=== PATIENT | female | born 1945 | race Caucasian/White ===

== ENCOUNTER 2019-01-04 04:55 | Inpatient (IN) ==
--- NOTE | 2018-12-16 09:16 | PAT Medication Instructions ---
Medication Instructions Date of Service December 16, 2018 Home Medications acetaminophen 500 mg PO QID PRN calcium carbonate-vitamin D3 1 tab PO QAM celecoxib [Celebrex] 200 mg PO BID latanoprost 1 drp OPHTHALMIC (EYE) PM montelukast 10 mg PO DAILY PRN multivitamin 1 tab PO QAM rosuvastatin [Crestor] 10 mg PO QAM ASK your surgeon for instructions celecoxib [Celebrex] 200 mg PO BID DO NOT take the morning of surgery calcium carbonate-vitamin D3 1 tab PO QAM montelukast 10 mg PO DAILY PRN multivitamin 1 tab PO QAM Take morning of surgery With a small sip of water, OTHERWISE NOTHING TO EAT OR DRINK AFTER MIDNIGHT: acetaminophen 500 mg PO QID PRN (if needed, may be taken up to four hours before surgery) rosuvastatin [Crestor] 10 mg PO QAM Take evening before surgery acetaminophen 500 mg PO QID PRN (if needed) latanoprost 1 drp OPHTHALMIC (EYE) PM Other Notes If you have any questions please call us at [phone] or [phone] or [phone] or [phone]
--- NOTE | 2018-12-16 13:37 | Anesthesiology Consultation ---
Date of Service December 16, 2018 Assessment & Plan (1) Encounter for pre-operative examination: Plan: PCP clearance 12/29/2018: "After reviewing patient's labs, chest x-ray, and EKG, she is cleared for surgery." Chart Review Chart Review: Acceptable Risk for Surgery and Patient seen in Pre Admission Testing Consults Requested none Teaching & Discussion Instructed NPO after midnight before surgery, except medications with 15 cc of water. Medication instructions provided according to the PAT guidelines. ASA ASA2 Proposed Anesthesia Anesthesia Type: MAC Spinal Risk / Benefits Reviewed With: PT / POA / Parent / Guardian, Accepts Plan and Informed Consent Obtained History Surgery Operation Date: 01/04/19 07:00 Proposed Procedures p Left Anterior Total Hip Arthroplasty - Derrek Wong, Height/Weight Height: 5 ft 4 in Weight: 71.7 kg Allergies Allergy/AdvReac Type Severity Reaction Status Date / Time No Known Allergies Allergy Verified 01/04/19 05:46 Medications Home Medications Medication Instructions Recorded Confirmed Last Taken acetaminophen 500 mg PO QID PRN 12/10/18 01/04/19 01/03/19 19:00 calcium carbonate-vitamin D3 1 tab PO QAM 12/10/18 01/04/19 12/21/18 09:00 [Calcium 600 + D(3)] celecoxib [Celebrex] 200 mg PO BID 12/10/18 01/04/19 12/28/18 17:00 latanoprost 1 drp OPHTHALMIC (EYE) PM 12/10/18 01/04/19 01/03/19 22:00 montelukast 10 mg PO DAILY PRN 12/10/18 12/10/18 Unknown multivitamin 1 tab PO QAM 12/10/18 01/04/19 01/03/19 09:30 rosuvastatin [Crestor] 10 mg PO QAM 12/10/18 01/04/19 01/03/19 09:30 Active Medications Generic Name Dose Route Start Last Admin Trade Name Freq PRN Reason Stop Dose Admin Acetaminophen 1,000 mg 01/04/19 06:00 01/04/19 05:51 Tylenol PO 01/04/19 18:00 1,000 mg PREOP LUCIO Administration Celecoxib 200 mg 01/04/19 06:00 01/04/19 05:50 Celebrex PO 01/04/19 18:00 200 mg PREOP LUCIO Administration Dexamethasone 8 mg 01/04/19 06:00 01/04/19 05:50 Decadron PO 01/04/19 18:00 8 mg PREOP LUCIO Administration Famotidine 20 mg 01/04/19 06:00 01/04/19 05:51 Pepcid PO 01/04/19 18:00 20 mg PREOP LUCIO Administration Metoclopramide HCl 10 mg 01/04/19 06:00 01/04/19 05:51 Reglan PO 01/04/19 18:00 10 mg PREOP LUCIO Administration Past Medical History Medical History Glaucoma (increased eye pressure) High cholesterol Seasonal allergies Past Family History Family History Father Family hx of colon cancer Past Surgical History Surgical History History of bunionectomy of right great toe History of right hip replacement Past Anesthesia History No Hx of Anesthesia Complications and No Family Hx of Anesthesia Complications History of PONV No Motion Sickness Screening History of Motion Sickness: No Social History Smoking Status: Never smoker Do You Dip or Chew Tobacco: No Hx Alcohol Use: Yes Alcohol type: beer alcohol intake frequency: a few times a month Hx Substance Use: No Exercise / Class Metabolic Activity II 4-5 Yardwork/Stairs/Walk up hill (no CP or SOB with stairs) Review of Systems Pt denies any recent chest pain, shortness of breath, palpitations, cough, fever or URI. Physical Exam Vital Signs Last Vital Signs Temp 36.8 C 01/04/19 05:58 Pulse 81 01/04/19 05:58 Resp 20 01/04/19 05:58 BP 146/78 H 01/04/19 05:58 BP: 127/76 P: 74bpm SPO2: 98% RA T: 97.4 F R: 16 ENMT Mouth: no dental restorations, no chipped teeth and no loose teeth Thyromental Distance: > or= 3.5 Finger Breadths (3.5) Mallampati Class: III Neck normal visual inspection; neck extension not limited Respiratory normal respiratory effort Auscultation: lungs clear to auscultation bilaterally Cardiovascular Rate/Rhythm: regular rate and regular rhythm Heart Sounds: no murmur Vessels: no carotid bruit Extremities: no edema Testing Electrocardiogram Date: 12/16/18 Findings: + NSR @ (71) Chest X-Ray Date: 12/16/18 Findings: + NAD Laboratory Results 12/16/18 13:55 12/16/18 13:55 Blood Type A Positive 12/16/18 13:55 Antibody Screen NEGATIVE 12/16/18 13:55 PT 10.4 Seconds (9.0-12.0) 12/16/18 13:55 INR 1.0 (0.9-1.1) 12/16/18 13:55 APTT 25.4 Seconds (21.0-31.0) 12/16/18 13:55 Hemoglobin A1c 5.6 % (4.5-5.6) 12/16/18 13:55 Urine Color Yellow 12/16/18 Unknown Urine Appearance Clear (Clear) 12/16/18 Unknown Urine pH 5.0 (4.5-7.5) 12/16/18 Unknown Ur Specific [place] 1.011 (1.000-1.030) 12/16/18 Unknown Urine Protein Negative (Negative) 12/16/18 Unknown Urine Glucose (UA) Negative (Negative) 12/16/18 Unknown Urine Ketones Negative (Negative) 12/16/18 Unknown Urine Nitrite Negative (Negative) 12/16/18 Unknown Ur Leukocyte Esterase Trace (Negative) H 12/16/18 Unknown Urine WBC (Auto) 1-5 /hpf (0-5) 12/16/18 Unknown Urine RBC (Auto) 0-4 /hpf (0-4) 12/16/18 Unknown U Hyaline Cast (Auto) 0 /lpf (0-5) 12/16/18 Unknown U Epithel Cells (Auto) 0-5 /lpf (0-5) 12/16/18 Unknown Urine Bacteria (Auto) Negative (Negative) 12/16/18 Unknown 12/16/18 Unknown Urine Culture - Final Urine,Clean Catch Alpha strep. not enterococcus
--- NOTE | 2018-12-16 14:20 | XRay Report ---
XR chest Pre-admission PA/Lat CLINICAL HISTORY: Preoperative chest COMPARISON STUDY: No previous studies for comparison. FINDINGS: The cardiac and mediastinal contours are normal. There is no evidence of focal pulmonary co nsolidation. There is no evidence of failure. No pleural effusions are visualized.[ IMPRESSION: No active disease in the chest. Electronically signed by: Dominguez Alonso M.D. 12/16/2018 2:19 PM
[2018-12-16 14:34] LABS: Basophils # (auto) 0.04 K/uL (0-0.2); Basophils % (auto) 0.8 %; Eosinophils # (auto) 0.06 K/uL (0-0.5); Eosinophils % (auto) 1.2 %; Hemoglobin 11.7 g/dL (12.0-16.0); Immature Granulocytes # (auto) 0.01 K/uL (0.00-0.02); Immature Granulocytes % (auto) 0.2 %; Lymphocytes # (auto) 1.53 K/uL (1.2-3.4); Lymphocytes % (auto) 29.7 %; Mean Corpuscular Hgb Conc 33.4 g/dL (32-36); Mean Corpuscular Volume 94.3 fL (80-100); Mean Platelet Volume 9.6 fL (7.4-10.4); Monocytes # (auto) 0.54 K/uL (0.11-0.59); Monocytes % (auto) 10.5 %; Neutrophils # (auto) 2.98 K/uL (1.4-6.5); Neutrophils % (auto) 57.6 %; Platelet Count 288 K/uL (130-400); RDW Coefficient of Variation 13.8 % (11.5-14.5); RDW Standard Deviation 47.8 fL (36.4-46.3); Red Blood Count 3.71 M/uL (4.2-5.4); White Blood Count 5.16 K/uL (4.8-10.8)
[2018-12-16 14:41] LABS: BUN Creatinine Ratio 27.2 (10-20); Calcium 10.1 mg/dl (8.5-10.1); Creatinine Clr Calc Pharmacy 72.6 ml/min; Est GFR (African American) 100.9; Potassium 4.6 mmol/L (3.5-5.1)
[2018-12-16 14:42] LABS: Partial Thromboplastin Time 25.4 Seconds (21.0-31.0); Prothrombin Time 10.4 Seconds (9.0-12.0)
[2018-12-16 14:47] LABS: Appearance Urine Clear (Clear); Bacteria Urine Automated Negative (Negative); Bilirubin Urine Negative (Negative); Cast Urine Automated 0 /lpf (0-5); Color Urine Yellow; Epithelial Cell Urine Auto 0-5 /lpf (0-5); Glucose Urine UA Negative (Negative); Ketones Urine Negative (Negative); Leukocyte Esterase Urine Trace (Negative); Nitrite Urine Negative (Negative); Protein Urine Negative (Negative); Specific Gravity Urine 1.011 (1.000-1.030); Urobilinogen Urine Negative (Negative)
[2018-12-17 05:45] LABS: Estimated Average Glucose 114 mg/dl
--- NOTE | 2019-01-03 12:25 | History & Physical Report ---
Date of Service January 03, 2019 Assessment & Plan (1) Degenerative joint disease (DJD) of hip: I have indicated the patient for left anterior total hip replacement. The risks, benefits and complications of surgery were explained to the patient which include but not limited to infection, acute blood loss, DVT/PE, injury to nerves, vessels, bone, soft tissue, arthrofibrosis, chronic pain, failure of the prosthesis, hip dislocation, leg length discrepancy, need for additional surgery, cardiac and pulmonary events and . The patient wished to proceed with surgery and informed consent was obtained at this time. We will plan for ASA BID post-operatively for DVT prophylaxis. Upon discharge the patient will be discharged home with home health services. Appropriate clearances by PCP were obtained. History of Present Illness Chief Complaint: Left hip pain/DJD Primary Care Provider: Zuleyma Kern The patient is a 73 year old female who presents with complaints of severe left hip pain and DJD. The patient has failed outpatient conservative treatments to this point which included NSAIDs, IA corticosteroid injection, HEP/PT. The patient's pain and limited function have progressed to the point where they severely hinder their activities of daily living and they no longer tolerate exercise programs. They are requesting to proceed with total hip replacement surgery. Allergies Allergy/AdvReac Type Severity Reaction Status Date / Time No Known Allergies Allergy Verified 01/04/19 05:46 Home Medications Home Medications Medication Instructions Recorded Confirmed Type acetaminophen 500 mg PO QID PRN 12/10/18 01/04/19 History calcium carbonate-vitamin D3 1 tab PO QAM 12/10/18 01/04/19 History [Calcium 600 + D(3)] celecoxib [Celebrex] 200 mg PO BID 12/10/18 01/04/19 History latanoprost 1 drp OPHTHALMIC (EYE) PM 12/10/18 01/04/19 History montelukast 10 mg PO DAILY PRN 12/10/18 12/10/18 History multivitamin 1 tab PO QAM 12/10/18 01/04/19 History rosuvastatin [Crestor] 10 mg PO QAM 12/10/18 01/04/19 History Past Med/Surg History Medical History Glaucoma (increased eye pressure) High cholesterol Seasonal allergies Surgical History History of bunionectomy of right great toe History of right hip replacement Family History Father Family hx of colon cancer Social History Current Living Situation: Family Other Information That Helps Us Care for You: No Feels Safe at Home: Yes Safety Concerns: Feels Safe At This Time Smoking Status: Never smoker Do You Dip or Chew Tobacco: No Hx Alcohol Use: Yes Alcohol type: beer Alcohol Intake Frequency: a few times a month Hx Substance Use: No Beliefs That Will Affect Care: None Preferred Language: Malay Communication Ability: Effective Review of Systems All systems reviewed & are unremarkable except as noted in HPI & below Physical Exam 2 Physical Exam: LLE NVSI +EHL/FHL/TA/GS SILT grossly, +2 DP pulse, compartments soft NT, limited painful ROM of the hip. Constitutional: WD/WN, vitals as above Eyes: PERRL, conjunctivae normal, anicteric sclerae Neck: trachea midline, no thyromegaly Respiratory: normal respiratory effort, lungs clear to auscultation Cardiovascular: RRR, no murmur, no edema Gastrointestinal (Abdomen): normal bowel sounds, soft, nontender, no hepatosplenomegaly Musculoskeletal: no cyanosis or clubbing, extremities motor strength 5/5 Skin: no rashes, warm and dry Neurologic: patellar DTR's 2+ bilat, sensation intact Psychiatric: A+Ox3, euthymic affect Lymphatic: no cervical or axillary lymphadenopathy Results & Data Diagnostic Findings Multiple views of the hip demonstrates severe DJD with complete loss of the joint space. +osteophytes, +sclerosis, +subchondral cysts.
[2019-01-04] MEDS ORDERED: CeleBREX 200 MG CAP PO SCH (06:00)
[2019-01-04] MEDS ORDERED: METOCLOPRAMIDE HCL 10 MG TABLET PO SCH (06:00)
[2019-01-04] MEDS ORDERED: dexAMETHasone 4 MG TAB PO SCH (06:00)
[2019-01-04] MEDS ORDERED: FAMOTIDINE 20 MG TAB PO SCH (06:00)
[2019-01-04] MEDS ORDERED: LR 500ML BOLUS IV SCH (06:00)
[2019-01-04] MEDS ORDERED: LR 500ML BOLUS, THEN 15ML/HR IV SCH (06:00)
[2019-01-04] MEDS ORDERED: TRANEXAMIC ACID 1,000 MG **IV Pre-op IV SCH (06:00)
[2019-01-04] MEDS ORDERED: CEFAZOLIN 1000MG 1,000 MG/7.5 ML SYR IV SCH (06:00)
[2019-01-04] MEDS ORDERED: ACETAMINOPHEN 500 MG TAB PO SCH (06:00)
[2019-01-04] MEDS ORDERED: ROPIVACAINE 0.5% HCL/PF 150 MG, BUPIVACAINE 0.5% MPF 30 ML, EPINEPHrine 30MG/30ML (OR U... INFIL SCH (06:00)
[2019-01-04] MEDS ORDERED: LR 60ML/HR IV SCH (06:00)
[2019-01-04] MEDS ORDERED: TRANEXAMIC ACID 1,000 MG **IV Intra-op IV SCH (06:30)
[2019-01-04] MEDS ORDERED: BUPIVACAINE 0.5 % 5 MG/1 ML PF 10ML VIAL ONE (06:35)
[2019-01-04] MEDS ORDERED: ORTHO JOINT ANESTHETIC ONE (06:39)
[2019-01-04] MEDS ORDERED: fentaNYL citrate 100 MCG/2 ML VIAL ONE (06:39)
[2019-01-04] MEDS ORDERED: MIDAZOLAM HCL 1 MG/ML 2ML VIAL ONE ×3 (06:39→08:55)
[2019-01-04] MEDS ORDERED: BACITRACIN INJ 50,000 UNIT VIAL ONE (06:39)
[2019-01-04] MEDS ORDERED: POVIDONE-IODINE OP SOLN 30 ML BTL ONE (06:39)
--- NOTE | 2019-01-04 07:01 | History & Physical Bridge Note ---
Date of Service January 04, 2019 History & Physical Bridge Note I have examined the patient, reviewed the History & Physical and in the interval since the performance of the History & Physical I have noted the following changes of clinical significance: no changes noted
[2019-01-04] MEDS ORDERED: ONDANSETRON INJ 2 MG/ML 2 ML VIAL IV PRN ×2 (07:02→10:27)
[2019-01-04] MEDS ORDERED: ATROPINE SULFATE 0.1 MG/ML 10ML SYR IV PRN (07:02)
[2019-01-04] MEDS ORDERED: fentaNYL citrate 100 MCG/2 ML VIAL IV PRN (07:02)
[2019-01-04] MEDS ORDERED: ePHEDrine sulfate 50 MG/ML AMP IV PRN (07:02)
[2019-01-04] MEDS ORDERED: PROPOFOL IV EMULSION 10 MG/ML 20 ML VIAL IV ONE (07:56)
[2019-01-04] MEDS ORDERED: PHENYLEPHRINE 100MCG/ML 5ML SYR ONE ×2 (07:56→08:55)
--- NOTE | 2019-01-04 09:12 | Post Operative Brief Note ---
Immediate Post Op Note v1 Date of Surgery January 04, 2019 Pre & Post Diagnosis Operation Date: 01/04/19 07:00 Pre-Op Diagnosis: LEFT HIP OSTEOARTHRITIS Post-Op Diagnosis: LEFT HIP OSTEOARTHRITIS Procedure Operation Date: 01/04/19 07:00 Actual Procedures p Left Anterior Total Hip Arthroplasty(Left) - Derrek Wong DO Surgeon Derrek Wong DO Cephalometric Analyst Ramy Ayala Estimated Blood Loss 75 Findings Consistent with Post-Op Diagnosis Fluids 700 Specimens femoral head Anesthesia Type Spinal MAC Complications none Disposition Disposition: Recovery Room Overlapping Procedure I was present for: the critical portions of procedure. Back up surgeon: was not required during procedure.
--- NOTE | 2019-01-04 09:36 | Operative Report ---
Post Operative Report Pre & Post Diagnosis Operation Date: 01/04/19 07:00 Pre-Op Diagnosis: LEFT HIP OSTEOARTHRITIS Post-Op Diagnosis: LEFT HIP OSTEOARTHRITIS Procedure Operation Date: 01/04/19 07:00 Actual Procedures p Left Anterior Total Hip Arthroplasty(Left) - Derrek Wong DO Surgeon Derrek Wong DO Icing Coater Ramy Ayala Estimated Blood Loss 75 Findings Consistent with Post-Op Diagnosis Fluids 700 Specimens Femoral head Anesthesia Type Spinal MAC Complications none Indications The patient is a 73-year-old female who presents with severe progressive left hip DJD who has failed outpatient conservative treatments. I indicated the patient for a total hip replacement and the risks and benefits were explained in detail which included but not limited to infection, bleeding, blood clot, damage to surrounding bone, nerves, vessels, soft tissue, hip dislocation, failure of the prosthesis, leg length discrepancy, need for additional surgery and . The patient agreed to proceed with replacement of the hip and informed consent was obtained. Appropriate clearances were obtained. Description of Procedure COMPONENTS USED: [employer] hip system: Acetabulum size 48, femur size 6 high offset, femoral head 32+0, liner 32 x 48, acetabular screw 25. DESCRIPTION OF PROCEDURE: Following satisfactory spinal anesthesia, the patient was placed supine on the OR table. The right leg was placed in the well leg munoz and the left leg in the traction device. The left leg was prepared with ChloraPrep and draped sterilely. Following a surgical time-out, an anterior approach in the interval between the sartorius and tensor muscles was completed. Circumflex femoral vessels were identified, tied and ligated. The anterior capsular fat pad was removed and the capsulotomy was performed revealing the arthritic femoral neck and head. A femoral neck cut was made with reciprocating saw and the bone fragments removed. The acetabular self- retraining retractor was placed. Acetabular reaming was completed under fluoroscopic guidance, a 48 shell was impacted into an anatomic position and secured with a dome screw. Local anesthetic was placed and following irrigation , the polyethylene liner was placed. The femur was placed into position of external rotation, extension and adduction. Femoral canal was prepared up to the size 6 high offset. Trial reduction with a +0 neck length head showed good soft tissue tension, leg lengths restored, and good fit and fill of the proximal canal using fluoroscopic landmarks. The hip was dislocated. The trial component was removed. The final implant was placed. The hip was irrigated with sterile saline soluation and reduced. A Betadine soak was performed. After 3 minutes, the hip was once more irrigated with copious sterile saline solution with bacitracin. Sanjuanita- incisional soft tissue was injected utilizing [place] [employer] which includes a combination of Ropivicaine 0.5% 150mg, Bupivicaine 0.5%/Epinephrine 1 :200,000 30ml, Toradol 30mg, Dexamethasone 4mg, Ketamine 10mg, Clonidine 100mcg and NSS 30ml solution. The capsule was then closed with 1-0 Vicryl interrupted figure of eight sutures. The fascia was closed with a running suture of #1 Vicryl, the subcutaneous tissues with 2-0 Vicryl and the skin with a running subcuticular stitch of 3-0 V-Loc. Dermabond prineo and a dry dressing, Prevena incisional vac were applied. The patient tolerated the procedure well and was transported to PACU in stable condition. Due to the complex nature of the procedure, the entire surgery was performed with the operational assistance of Ramy Ayala PA-C. The catalog library assistant, under direct supervision, was involved in the actual performance of all aspects of the surgical procedure including patient positioning, hemostasis, tissue retraction, instrument management and wound closure. I attest to the content of the Intraoperative Record and any orders documented therein. Any exceptions are noted below.
--- NOTE | 2019-01-04 10:01 | Anesthesiology Progress Note ---
Date of Service January 04, 2019 Anesthesia Post Procedure Vital Signs Vital Signs: Temp Pulse Pulse Resp BP BP Pulse Ox 01/04/19 09:50 69 12 114/69 100 01/04/19 09:40 36.4 C L 81 15 109/61 100 01/04/19 05:58 36.8 C 81 20 146/78 H Pain Intensity Left Hip: Pain Intensity: 0 Notes Mental Status: alert / awake / arousable Patient Amnestic to Procedure: Yes Nausea / Vomiting: adequately controlled Pain: adequately controlled Airway Patency, RR, SpO2: stable & adequate BP & HR: stable & adequate Hydration State: stable & adequate Neuraxial Anesthesia: was administered and sensory block is resolving Anesthetic Complications: no major complications apparent
--- NOTE | 2019-01-04 10:02 | Fluoroscopy Report ---
FL hip LT 1V CLINICAL HISTORY: LEFT ANTERIOR ANDRES COMPARISON STUDY: None. FLUOROSCOPY TIME: 57 seconds. FINDINGS: 2 fluoroscopic spot images demonstrate a left total hip arthroplasty. The hardware appears intact. No fracture or dislocation. IMPRESSION: Fluoroscopy provided for left total hip arthroplasty. Electronically signed by: Mamadou Ramsey M.D. 01/04/2019 10:00 AM
--- NOTE | 2019-01-04 10:09 | XRay Report ---
AP PELVIS, CROSSTABLE LATERAL LEFT HIP History: Left total hip arthroplasty. Degenerative arthritis. Postop. FINDINGS: The patient is status post a left total hip arthroplasty. The hardware is intact. No fractu re or dislocation. Skin loren and surgical drains are in place. There is evidence for polyethylene wear within the right acetabular cup of the right total hip arthroplasty. IMPRESSION: Left total hip arthroplasty. No evidence for hardware complication within the left hip. There is evid ence for polyethylene wear within the right acetabular cup of the right total hip arthroplasty. Electronically signed by: Mamadou Ramsey M.D. 01/04/2019 10:08 AM
[2019-01-04] MEDS ORDERED: BISACODYL 10 MG SUPP PR PRN (10:27)
[2019-01-04] MEDS ORDERED: MONTELUKAST SODIUM 10 MG TABLET PO PRN (10:27)
[2019-01-04] MEDS ORDERED: METOCLOPRAMIDE HCL INJ 5 MG/ML 2 ML VIAL IV PRN (10:27)
[2019-01-04] MEDS ORDERED: MAGNESIUM HYDROXIDE SUSP 30 ML UDC PO PRN (10:27)
[2019-01-04] MEDS ORDERED: NALOXONE HCL 0.4 MG/1 ML VIAL/CARP IV PRN (10:27)
[2019-01-04] MEDS ORDERED: HYDROmorphone INJ 0.5 MG/0.5 ML SYR IV PRN (10:27)
[2019-01-04] MEDS: KETOROLAC TROMETHAMINE 15 MG/ML VIAL IV SCH ×3 (12:03→23:31)
[2019-01-04] MEDS: SODIUM CHLORIDE 0.9% 1000ML 1,000 ML IV SCH ×2 (13:33→23:31)
[2019-01-04] MEDS ORDERED: ACETAMINOPHEN 500 MG TAB PO PRN (14:00)
--- NOTE | 2019-01-04 15:27 | Orthopedic Progress Note ---
Date of Service January 04, 2019 Assessment & Plan (1) Degenerative joint disease (DJD) of hip: Status post left anterior total hip arthroplasty -Ancef x24 -DVT prophylaxis ASA 325 mg twice daily, SCDs and teds -Weight-bear as tolerated left lower extremity -PT/OT -A.m. labs -Postoperative x-ray demonstrates a well aligned well fixed orthopedic prosthesis without evidence of fracture dislocation. - Subjective Post Operative Progress Note Patient seen sitting up in bed, comfortable, denies complaints, pain well controlled, no acute issues. Physical Exam 2 Vital Signs (Past 24 Hours): Last Vital Signs Temp 36.8 C 01/04/19 15:10 Pulse 76 01/04/19 15:10 Resp 18 01/04/19 15:10 BP 124/70 01/04/19 15:10 Pulse Ox 99 01/04/19 15:10 Physical Exam: LLE NVSI +EHL/FHL/TA/GS SILT grossly, +2 DP pulse, compartments soft NT, dressing cdi. Constitutional: WD/WN, vitals as above
[2019-01-04] MEDS: CEFAZOLIN 2000MG 2,000 MG/15 ML SYR IV SCH ×2 (15:49→22:36)
[2019-01-04] MEDS ORDERED: SENNA 8.6 MG TAB PO SCH (21:00)
[2019-01-04] MEDS ORDERED: LATANOPROST 0.005% OP SOLN 2.5 ML BTL OP SCH (21:00)
[2019-01-04] MEDS: DOCUSATE SODIUM 100 MG CAP PO SCH (21:37)
[2019-01-05] MEDS: OXYCODONE HCL IR 5 MG TAB (IMMEDIATE RELEASE) PO PRN ×3 (02:37→11:38)
[2019-01-05] MEDS: KETOROLAC TROMETHAMINE 15 MG/ML VIAL IV SCH (05:11)
[2019-01-05 06:15] LABS: Basophils # (auto) 0.01 K/uL (0-0.2); Basophils % (auto) 0.1 %; Hematocrit (blood only) 27.5 % (37-47); Hemoglobin 9.3 g/dL (12.0-16.0); Immature Granulocytes # (auto) 0.03 K/uL (0.00-0.02); Immature Granulocytes % (auto) 0.3 %; Lymphocytes # (auto) 1.69 K/uL (1.2-3.4); Lymphocytes % (auto) 14.2 %; Mean Corpuscular Hgb Conc 33.8 g/dL (32-36); Mean Corpuscular Volume 92.9 fL (80-100); Mean Platelet Volume 9.4 fL (7.4-10.4); Monocytes # (auto) 1.27 K/uL (0.11-0.59); Monocytes % (auto) 10.7 %; Neutrophils % (auto) 74.7 %; Platelet Count 247 K/uL (130-400); RDW Coefficient of Variation 13.3 % (11.5-14.5); RDW Standard Deviation 44.7 fL (36.4-46.3); Red Blood Count 2.96 M/uL (4.2-5.4)
[2019-01-05 06:44] LABS: BUN Creatinine Ratio 18.4 (10-20); Creatinine Clr Calc Pharmacy 67.5 ml/min; Est GFR (African American) 97.3; Est GFR (Non-African American) 83.9; Potassium 4.3 mmol/L (3.5-5.1)
--- NOTE | 2019-01-05 08:22 | Anesthesiology Progress Note ---
Date of Service January 05, 2019 Anesthesia Post Procedure Vital Signs Vital Signs: Temp Pulse Pulse Resp BP Pulse Ox 01/05/19 07:05 36.9 C 81 16 127/67 99 01/05/19 02:30 36.8 C 81 16 118/72 99 01/04/19 23:22 36.9 C 59 L 16 120/68 96 01/04/19 18:43 36.9 C 73 18 133/69 100 01/04/19 15:10 36.8 C 76 18 124/70 99 01/04/19 13:20 36.6 C 76 15 131/74 99 01/04/19 12:18 64 18 127/73 99 01/04/19 11:18 36.6 C 72 16 132/78 100 01/04/19 10:50 36.5 C 71 16 116/79 100 01/04/19 10:20 36.3 C L 63 14 120/70 100 01/04/19 10:10 36.5 C 61 12 111/68 100 01/04/19 10:00 64 13 112/69 100 01/04/19 09:50 69 12 114/69 100 01/04/19 09:40 36.4 C L 81 15 109/61 100 Pain Intensity Left Hip: Pain Intensity: 3 Notes Mental Status: alert / awake / arousable and participated in evaluation Nausea / Vomiting: adequately controlled Pain: adequately controlled Airway Patency, RR, SpO2: stable & adequate BP & HR: stable & adequate Hydration State: stable & adequate Anesthetic Complications: no major complications apparent and Pt Satisfied with anesthetic care
[2019-01-05] MEDS: DOCUSATE SODIUM 100 MG CAP PO SCH (08:43)
[2019-01-05] MEDS ORDERED: ASPIRIN 325 MG ECTAB PO SCH (09:00)
[2019-01-05] MEDS ORDERED: MULTIVITAMIN TAB PO SCH (09:00)
[2019-01-05] MEDS ORDERED: ROSUVASTATIN CALCIUM 10 MG TAB PO SCH (09:00)
--- NOTE | 2019-01-05 14:28 | Orthopedic Progress Note ---
Date of Service January 05, 2019 Assessment & Plan (1) Degenerative joint disease (DJD) of hip: Status post left anterior total hip arthroplasty POD#1 -Ancef x24 -DVT prophylaxis ASA 325 mg twice daily, SCDs and teds -Weight-bear as tolerated left lower extremity -PT/OT -A.m. labs - hgb 9.3 -Postoperative x-ray demonstrates a well aligned well fixed orthopedic prosthesis without evidence of fracture dislocation. -DC planning - home with HH today Subjective Post Operative Progress Note, patient seen this a.m. sitting up in bed, comfortable, denies complaints, pain well controlled, no acute issues overnight. Physical Exam 2 Vital Signs (Past 24 Hours): Last Vital Signs Temp 36.9 C 01/05/19 09:24 Pulse 81 01/05/19 09:24 Resp 16 01/05/19 09:24 BP 127/67 01/05/19 09:24 Pulse Ox 95 01/05/19 11:47 Physical Exam: LLE NVSI +EHL/FHL/TA/GS SILT grossly, +2 DP pulse, compartments soft NT, dressing cdi.
[2019-01-05] MEDS ORDERED: CeleBREX 200 MG CAP PO SCH (21:00)
--- NOTE | 2019-01-05 21:05 | Discharge Summary ---
Date of Service January 05, 2019 Admission HPI Per Admitting Provider The patient is a 73 year old female who presents with complaints of severe left hip pain and DJD. The patient has failed outpatient conservative treatments to this point which included NSAIDs, IA corticosteroid injection, HEP/PT. The patient's pain and limited function have progressed to the point where they severely hinder their activities of daily living and they no longer tolerate exercise programs. They are requesting to proceed with total hip replacement surgery. Principal Diagnosis Left anterior total hip arthroplasty Discharge Exam LLE NVSI +EHL/FHL/TA/GS SILT grossly, +2 DP pulse, compartments soft NT, dressing cdi. Constitutional WD/WN, vitals as above Eyes PERRL, conjunctivae normal, anicteric sclerae Neck trachea midline, no thyromegaly Respiratory normal respiratory effort, lungs clear to auscultation Cardiovascular RRR, no murmur, no edema Gastrointestinal (Abdomen) normal bowel sounds, soft, nontender, no hepatosplenomegaly Musculoskeletal no cyanosis or clubbing, extremities motor strength 5/5 Skin no rashes, warm and dry Neurologic patellar DTR's 2+ bilat, sensation intact Psychiatric A+Ox3, euthymic affect Lymphatic no cervical or axillary lymphadenopathy Discharge Data Allergies Allergy/AdvReac Type Severity Reaction Status Date / Time No Known Allergies Allergy Verified 01/04/19 05:46 Consultations 01/05/19 08:00 Consult Case Management - Discharge Planning Routine Procedures Performed Operation Date: 01/04/19 07:00 Actual Procedures p Left Anterior Total Hip Arthroplasty(Left) - Derrek Wong DO Ordered Studies 01/04/19 07:00 FL fluoroscopy <1hr Routine FL hip LT 1V Routine Hospital Course (1) Degenerative joint disease (DJD) of hip: The patient is a 73 -year-old female who presents with long standing history of severe left DJD and failed outpatient conservative treatments including NSAIDs, bracing, injections and home walking/exercise program. The patient's symptoms have progressed to the point where it has been difficult to perform even normal activities of daily living. I indicated the patient for a left anterior total hip arthroplasty, the risks, benefits and complications of the procedure include but not limited to infection , bleeding, damage to bone, nerves, vessels, surrounding soft tissue, may develop blood clots, loss of function, leg length discrepancy, dislocation, failure of the components, loosening of the components, the need for additional surgery and . The patient wished to proceed with surgery at this time and informed consent was obtained. Hospital Course: On 2 the patient was taken to the operating room, adequate anesthesia administered and underwent a left anterior total hip arthroplasty. The patient tolerated the procedure well and was taken to the PACU in stable condition. Post-operatively the patient was started on a DVT ppx medication and given appropriate IV antibiotics. Consults were placed to physical therapy, occupational therapy and case management. On POD#1, the patient did well overnight and their pain was well controlled. Labs were drawn and the Hgb was 9.3. The patient progressed well with PT. Dressings were changed at this time and the incision was clean, dry and intact. The patients hospital stay was relatively uneventful and they were deemed stable by the orthopedic team and consultants to be discharged home on on 10/12. Discharge Instructions: Upon discharge the patient may weight bear as tolerates through their operative extremity. They were instructed to keep the incision clean and dry at all times. The patient may shower but should not submerge the incision, avoid bathing, pools and hot tubes. The patient was given a script for pain medication and should take as instructed. The patient was given a script for DVT ppx ASA 325mg BID and should take as directed. The patient was instructed to not drive or travel for long distances until cleared to do so. If the patient develops any symptoms of fevers, chills, nausea, vomiting, increased redness, swelling, pain or drainage from the surgical site, they should notify the office and/or proceed to the nearest emergency room. The patient should follow up in 10-14 days after surgery for their routine post-operative follow- up appointment and should call the office to confirm the date and time. Status post left anterior total hip arthroplasty POD#1 -Ancef x24 -DVT prophylaxis ASA 325 mg twice daily, SCDs and teds -Weight-bear as tolerated left lower extremity -PT/OT -A.m. labs - hgb 9.3 -Postoperative x-ray demonstrates a well aligned well fixed orthopedic prosthesis without evidence of fracture dislocation. -DC planning - home with today Total Time Total Time Spent Total Time Spent (In Minutes): >60 minutes Total Time Includes: Examination of the Patient, Discharge Planning, Medication Reconciliation and Communication With Other Providers Discharge Plan Discharge Items Patient Disposition: Home - Home Health Services Reason For Visit: LEFT HIP OSTEOARTHRITIS Discharge Diagnosis: Left anterior total hip replacement Condition: Good Discharge Goals: Decrease discomfort, Improve function, Increase independence and Therapeutic intervention Activity: Per 'Additional Instructions' section Lifting: Wait until after follow-up appointment Bathing Comment: No bathing, pools hot tubs Sexual Activity: Wait until after follow-up appointment Driving/Machine Use Comment: do not drive until cleared by your surgeon Weightbearing: Left weightbearing Non-emergency contact: Primary Care Provider and Surgeon Call non-emergency contact if: you have any medication questions, your symptoms worsen, your pain is not controlled, your pain is worsening, your pain is unusual for you, you have a fever, your temperature is above 101, your wound has increased redness, your wound has increased drainage and your wound pain has increased Follow-up/Referrals: Zuleyma Kern PA-C [Primary Care Provider] - Diet: Regular Addtl Provider Instructions: ACTIVITY RECOMMENDATIONS: SELF CARE INSTRUCTIONS AFTER TOTAL HIP REPLACEMENT : Direct Anterior Approach Until the incision and soft tissues around your hip have healed, there is a possibility that the hip prosthesis could dislocate. A. Hip flexion ( Up & Down out of chair or steps ) may be difficult. This is normal. B. Numbness in front of the thigh is also normal for a few weeks. C. Use hand rails when walking on stairs. D. Wear low heeled shoes with non-slip soles. E. Be sure that your floors are free of things that could trip you - throw rugs , electrical cords, small objects. Avoid wet and waxed floors, especially with crutches and canes. F. Try to walk several times a day with rest periods between. G. Continue with all the exercises taught to you in the hospital. Again, make walking a part of your daily routine. SPECIAL CARE INSTRUCTIONS: VERY IMPORTANT TO READ AND REVIEW A. You may still be at risk for phlebitis and blood clots. 1. Wear surgical stockings (LUCI hose) for 2 weeks after surgery to improve circulation and reduce swelling. 2. Take Aspirin 325mg twice daily for 4 weeks or as directed by your doctor. This is your blood thinner. 3. High risk patients may be prescribed a stronger blood thinner if necessary. 4. If you are on Coumadin normally, your family doctor/wood patternmaker should monitor your blood work. Expect a phone call the day of or the day after bloodwork is drawn to adjust your dosage. B. You must take antibiotics before having dental work, bladder, bowel and other surgery. Your doctor will provide you with a permanent card to carry describing precautions. C. Call [facility] if you have a fever, redness or swelling around the incision, cloudy drainage from incision, or sudden increase in pain in your hip, not relieved by your regular pain medication. D. Please call the office at if you have any concerns or questions about your operation or recovery. * YOU MAY SHOWER, NO TUB BATHS UNTIL CLEARED BY YOUR DOCTOR. - Keep an extra close eye on the top portion of your incision. Be sure to keep clean & dry. * WEAR LUCI HOSE 20 HOURS PER DAY FOR 2 WEEKS. * YOU MAY PROGRESS FROM A WALKER, TO A CANE, TO INDEPENDENT AT YOUR OWN PACE. * MOST PATIENTS WILL HAVE HOME NURSING FOR THERAPY. IF YOU DECIDE TO DO OUTPATIENT PHYSICAL THERAPY, PLEASE SCHEDULE THIS 3 TIMES PER WEEK. * DERMABOND Prineo- This is a mesh tape dressing that is covered with glue. It should remain in place until the incision is properly healed, usually 10-14 days. This dressing is designed to naturally slough off. You may trim the excess mesh tape as it peels off. Incision may be briefly wet in a shower. Dry immediately by blotting with a clean, dry towel. Do not bath or swim until instructed by your doctor. Do not scratch, rub, or pick at the dressing. Do not apply any topical ointments or lotions until dressing is completely removed and/or instructed by your doctor. There may be a small piece of suture material at one end of your incision. Do not pull or trim this. If it is bothersome or catching on clothing, you may cover it with a band-aid. *Prevena incisional vac is a special dressing covering your incision. This dressing provides a sterile dry environment while you are healing. The dressing is to be left in place for 7 days post-operatively. Your home nurse or surgeon will remove. If you develop any redness or blisters or have any questions notify your surgeon immediately. FOLLOW UP VISIT: If appointment is not already scheduled: Please call [facility] to make a follow-up appointment for 2 weeks after your surgery at . Prescriptions: New acetaminophen [Pain Reliever] 500 mg Tablet 1,000 mg PO Q8H PRN (Reason: pain) Qty: 90 RF: 0 aspirin 325 mg Tablet,Delayed Release (Dr/Ec) 325 mg PO BID 28 Days Qty: 56 RF: 0 celecoxib [Celebrex] 200 mg Capsule 200 mg PO BID PRN (Reason: pain) 14 Days Qty: 28 RF: 0 sennosides [Senokot] 8.6 mg Tablet 17.2 mg PO HS PRN (Reason: constipation) Qty: 14 RF: 0 oxycodone 5 mg Tablet 5 mg PO Q6H MDD 6 tabs PRN (Reason: pain) Qty: 30 RF: 0 Continue latanoprost 0.005 % Drops 1 drp OPHTHALMIC (EYE) PM RF: 0 montelukast 10 mg Tablet 10 mg PO DAILY PRN (Reason: allergies) RF: 0 rosuvastatin [Crestor] 10 mg Tablet 10 mg PO QAM RF: 0 multivitamin Tablet 1 tab PO QAM RF: 0 calcium carbonate-vitamin D3 [Calcium 600 + D(3)] 600 mg calcium- 200 unit Capsule 1 tab PO QAM RF: 0 Discontinued acetaminophen 500 mg Tablet 500 mg PO QID PRN (Reason: Pain) RF: 0 celecoxib [Celebrex] 200 mg Capsule 200 mg PO BID RF: 0 Stand-Alone Forms: [facility] Discharge Orders: Discharge Order (Routine); Ordered 01/05/19 Ordered By: Derrek Wong Admission Data Admit Date/Time: 01/04/19 09:50 Attending Provider: Derrek Wong Admit Provider: Derrek Wong Primary Care Provider: Zuleyma Kern Service: Surgical Services Other Interventions: Discharge Summary Assessment (RN) Last Done: 01/05/19 09:24 DC Date/Time DO NOT enter until pt leaves facility: 01/05/19 12:10
== END 2019-01-05 12:10 | disposition home health service (06) | DRG 470 ==
LOC: ASU 04:55 → 3E 09:50

== ENCOUNTER 2019-10-04 10:11 | Inpatient (IN) ==
--- NOTE | 2019-09-15 15:13 | PAT Medication Instructions ---
Medication Instructions Date of Service September 15, 2019 Home Medications Medication Instructions Recorded acetaminophen [Pain Reliever] 1,000 mg PO Q8H PRN #90 tab 01/05/19 Calcium 600 + D(3) 1 tab PO QAM latanoprost 1 drp OPHTHALMIC (EYE) PM montelukast 10 mg PO DAILY PRN multivitamin 1 tab PO QAM rosuvastatin [Crestor] 10 mg PO QAM acetaminophen [Pain Reliever] 1,000 mg PO Q8H PRN biotin 10,000 mcg PO QAM cholecalciferol (vitamin D3) [Vitamin D3] 400 unit PO QAM docusate sodium [Stool Softener] 100 mg PO QAM STOP taking 2 weeks before surgery (or as soon as possible if surgery is within 2 weeks) biotin 10,000 mcg PO QAM DO NOT take the morning of surgery Calcium 600 + D(3) 1 tab PO QAM montelukast 10 mg PO DAILY PRN multivitamin 1 tab PO QAM cholecalciferol (vitamin D3) [Vitamin D3] 400 unit PO QAM docusate sodium [Stool Softener] 100 mg PO QAM Take morning of surgery With a small sip of water, OTHERWISE NOTHING TO EAT OR DRINK AFTER MIDNIGHT: rosuvastatin [Crestor] 10 mg PO QAM acetaminophen [Pain Reliever] 1,000 mg PO Q8H PRN (okay to take up to 4 hours prior to surgery if needed) Take evening before surgery latanoprost 1 drp OPHTHALMIC (EYE) PM montelukast 10 mg PO DAILY PRN (if needed) acetaminophen [Pain Reliever] 1,000 mg PO Q8H PRN (if needed) Other Notes If you have any questions please call us at [phone] or [phone] or [phone] or [phone]
--- NOTE | 2019-09-16 12:30 | Anesthesiology Consultation ---
Date of Service September 16, 2019 Assessment & Plan (1) Encounter for pre-operative examination: - Awaiting review preop testing (labs). - Awaiting surgeon-ordered PCP preop evaluation scheduled 09/22 (MICHEAL Desai) Chart Review Chart Review: Patient seen in Pre Admission Testing Teaching & Discussion Pre-Anesthesia Teaching/Discussion Notes: Instructed NPO after midnight before surgery,except medications with 15 cc of water. Medication instructions provided according to the PAT guidelines. History Surgery Operation Date: 10/04/19 09:00 Proposed Procedures p Right Total Hip Revision - Derrek Wong DO Height/Weight Height: 5 ft 3.5 in Weight: 66.9 kg Allergies Allergy/AdvReac Type Severity Reaction Status Date / Time No Known Allergies Allergy Verified 09/09/19 08:27 Medications Home Medications Medication Instructions Recorded Confirmed Last Taken Calcium 600 + D(3) 1 tab PO QAM 12/10/18 09/09/19 12/21/18 09:00 latanoprost 1 drp OPHTHALMIC (EYE) PM 12/10/18 09/09/19 01/03/19 22:00 montelukast 10 mg PO DAILY PRN 12/10/18 09/09/19 Unknown multivitamin 1 tab PO QAM 12/10/18 09/09/19 01/03/19 09:30 rosuvastatin [Crestor] 10 mg PO QAM 12/10/18 09/09/19 01/03/19 09:30 acetaminophen [Pain Reliever] 1,000 mg PO Q8H PRN #90 tab 01/05/19 09/09/19 Unknown biotin 10,000 mcg PO QAM 09/09/19 09/09/19 Unknown cholecalciferol (vitamin D3) 400 unit PO QAM 09/09/19 09/09/19 Unknown [Vitamin D3] docusate sodium [Stool Softener] 100 mg PO QAM 09/09/19 09/09/19 Unknown Past Medical History Medical History DJD (degenerative joint disease) RIGHT HIP Glaucoma (increased eye pressure) High cholesterol Exercise / Class Metabolic Activity II 4-5 Yardwork/Stairs/Walk up hill Past Family History Family History Father Family hx of colon cancer Mother Family hx of colon cancer Father No problems noted. Past Surgical History Surgical History History of bunionectomy of right great toe History of left hip replacement Left ANDRES: 01/04/19: SAB x 1 at L3-L4 at [facility] History of right hip replacement *Patient reports significant post-op pain night after having Left ANDRES 01/04/19 at [facility]* Past Anesthesia History No Hx of Anesthesia Complications and No Family Hx of Anesthesia Complications History of PONV No Hx of PONV and No Hx of Motion Sickness Social History Smoking Status: Never smoker Do You Dip or Chew Tobacco: No Hx Alcohol Use: Yes Alcohol type: wine alcohol intake frequency: a few times a week Hx Substance Use: No Review of Systems Patient denies chest pain, shortness of breath, dyspnea on exertion, cough, wheezing, palpitations. Physical Exam Vital Signs VITALS BP 106/71 P 78 TEMP 97.6 SP02 100%RA RESP 16 PHYSICAL Full neck and c-spine range of motion. Full TMJ range of motion. TMD 3 finger breaths Mallampati Score 3 Dentition: intact, upper front bonding Lungs: clear throughout to auscultation Cardiac: regular rate and rhythm, no murmurs noted Spine: normal Carotid arteries: negative bruit Extremities: no edema
[2019-09-16 13:44] LABS: Basophils # (auto) 0.03 K/uL (0-0.2); Basophils % (auto) 0.7 %; Eosinophils # (auto) 0.05 K/uL (0-0.5); Eosinophils % (auto) 1.1 %; Hematocrit (blood only) 37.6 % (37-47); Hemoglobin 12.4 g/dL (12.0-16.0); Lymphocytes # (auto) 1.56 K/uL (1.2-3.4); Lymphocytes % (auto) 34.7 %; Mean Corpuscular Hemoglobin 30.9 pg (25-34); Mean Corpuscular Volume 93.8 fL (80-100); Mean Platelet Volume 10.3 fL (7.4-10.4); Monocytes # (auto) 0.43 K/uL (0.11-0.59); Monocytes % (auto) 9.6 %; Neutrophils # (auto) 2.42 K/uL (1.4-6.5); Neutrophils % (auto) 53.9 %; Platelet Count 265 K/uL (130-400); RDW Coefficient of Variation 13.5 % (11.5-14.5); RDW Standard Deviation 47.1 fL (36.4-46.3); Red Blood Count 4.01 M/uL (4.2-5.4); White Blood Count 4.49 K/uL (4.8-10.8)
[2019-09-16 14:00] LABS: Appearance Urine Clear (Clear); Bilirubin Urine Negative (Negative); Blood Urine Negative (Negative); Color Urine Yellow; Glucose Urine UA Negative (Negative); Ketones Urine Negative (Negative); Leukocyte Esterase Urine Negative (Negative); Nitrite Urine Negative (Negative); Protein Urine Negative (Negative); Specific Gravity Urine 1.015 (1.000-1.030); Urobilinogen Urine Negative (Negative); pH Urine 6.5 (4.5-7.5)
[2019-09-16 14:04] LABS: Partial Thromboplastin Ratio 0.9; Partial Thromboplastin Time 25.6 Seconds (21.0-31.0); Prothrombin Time 10.3 Seconds (9.0-12.0)
[2019-09-16 14:53] LABS: Albumin Level 3.9 gm/dl (3.4-5.0); BUN Creatinine Ratio 20.1 (10-20); Creatinine Clr Calc Pharmacy 70.6 ml/min; Est GFR (African American) 101.2; Est GFR (Non-African American) 87.3; Potassium 3.7 mmol/L (3.5-5.1)
[2019-09-16 15:02] LABS: Estimated Average Glucose 111 mg/dl; Hemoglobin A1C 5.5 % (4.5-5.6)
--- NOTE | 2019-10-03 14:47 | History & Physical Report ---
Date of Service October 03, 2019 Assessment & Plan (1) Failed total hip arthroplasty: I have indicated the patient for revision right total hip replacement, head and liner exchange. The risks, benefits and complications of surgery were explained to the patient which include but not limited to infection, acute blood loss, DVT/PE, injury to nerves, vessels, bone, soft tissue, arthrofibrosis, chronic pain, failure of the prosthesis, hip dislocation, leg length discrepancy, need for additional surgery, cardiac and pulmonary events and . The patient wished to proceed with surgery and informed consent was obtained at this time. We will plan for ASA BID post-operatively for DVT pro phylaxis. Upon discharge the patient will be discharged home with home health services. Appropriate clearances by PCP were obtained. History of Present Illness Chief Complaint: Painful right total hip, ecentric wear of poly Primary Care Provider: Zuleyma Kern PA-C The patient is a 74 year old female who presents with complaints of chronic progressing painful right ANDRES with ecentric wear of the polyethelene liner. The patient has failed outpatient conservative treatments to this point which included close monitoring with serial XRs, NSAIDs, PT and home exercise/walking program. The patient's pain and limited function have progressed to the point where they severely hinder their activities of daily living and they no longer tolerate exercise programs. They are requesting to proceed with total hip replacement surgery. Allergies Allergy/AdvReac Type Severity Reaction Status Date / Time No Known Allergies Allergy Verified 10/04/19 10:47 Home Medications Home Medications Medication Instructions Recorded Confirmed Type Calcium 600 + D(3) 1 tab PO QAM 12/10/18 10/04/19 History montelukast 10 mg PO DAILY PRN 12/10/18 10/04/19 History multivitamin 1 tab PO QAM 12/10/18 10/04/19 History rosuvastatin [Crestor] 10 mg PO QAM 12/10/18 10/04/19 History acetaminophen [Pain Reliever] 1,000 mg PO Q8H PRN #90 tab 01/05/19 10/04/19 Rx biotin 10,000 mcg PO QAM 09/09/19 10/04/19 History cholecalciferol (vitamin D3) 400 unit PO QAM 09/09/19 10/04/19 History [Vitamin D3] docusate sodium [Stool Softener] 100 mg PO QAM 09/09/19 10/04/19 History Past Med/Surg History Medical History DJD (degenerative joint disease) RIGHT HIP Glaucoma (increased eye pressure) High cholesterol Surgical History History of glaucoma tube shunt procedure (Acute) History of left hip replacement Left ANDRES: 01/04/19: SAB x 1 at L3-L4 at [facility] History of bunionectomy of right great toe History of right hip replacement Family History Father Family hx of colon cancer Mother Family hx of colon cancer Father No problems noted. Social History Preferred Language: Setswana Communication Ability: Effective Beliefs That Will Affect Care: None marital status: / Current Living Situation: Family Current Living Situation Comment: LIVES WITH SON Feels Safe at Home: Yes Safety Concerns: Feels Safe At This Time Smoking Status: Never smoker Do You Dip or Chew Tobacco: No ; Second Hand Exposure: No ; Hx Alcohol Use: Yes Alcohol type: wine Hx Substance Use: No Review of Systems Review of Systems: All systems reviewed & are unremarkable except as noted in HPI & below Constitutional: as per Subjective / HPI Physical Exam Physical Exam: RLE NVSI +EHL/FHL/TA/GS SILT grossly, +2 DP pulse, compartments soft NT, limited painful ROM of the hip, antalgic gait. Constitutional: WD/WN, vitals as above Eyes: PERRL, conjunctivae normal, anicteric sclerae ENMT: external ear and nose normal, oropharynx normal Neck: trachea midline, no thyromegaly Respiratory: normal respiratory effort, lungs clear to auscultation Cardiovascular: RRR, no murmur, no edema Gastrointestinal (Abdomen): normal bowel sounds, soft, nontender, no hepatosplenomegaly Musculoskeletal: no cyanosis or clubbing, extremities motor strength 5/5 Skin: no rashes, warm and dry Neurologic: patellar DTR's 2+ bilat, sensation intact Psychiatric: A+Ox3, euthymic affect Lymphatic: no cervical or axillary lymphadenopathy Results & Data Diagnostic Findings XRs right total hip demonstrates well aligned well fixed prothesis with ecentric wear of the polyethylene liner. Proximal femur osteolysis.
[~2019-10-04 10:11] MED LIST: ACETAMINOPHEN 500 MG TAB PO SCH; BUPIVACAINE 0.5 % 5 MG/1 ML PF 10ML VIAL ONE; CEFAZOLIN 1000MG 1,000 MG/7.5 ML SYR IV SCH; CeleBREX 200 MG CAP PO SCH; FAMOTIDINE 20 MG TAB PO SCH; GABAPENTIN 300 MG CAP PO SCH; METOCLOPRAMIDE HCL 10 MG TABLET PO SCH; MIDAZOLAM HCL 1 MG/ML 2ML VIAL ONE; ROPIVACAINE 0.5% HCL/PF 150 MG, BUPIVACAINE 0.5% MPF 30 ML, EPINEPHrine 30MG/30ML (OR U... INSTIL SCH; TRANEXAMIC ACID 1,000 MG **IV Intra-op IV SCH; TRANEXAMIC ACID 1,000 MG **IV Pre-op IV SCH; dexAMETHasone 4 MG TAB PO SCH; fentaNYL citrate 100 MCG/2 ML VIAL ONE
--- NOTE | 2019-10-04 11:12 | History & Physical Bridge Note ---
Date of Service October 04, 2019 History & Physical Bridge Note I have examined the patient, reviewed the History & Physical and in the interval since the performance of the History & Physical I have noted the following changes of clinical significance: no changes noted
[2019-10-04] MEDS: GABAPENTIN 300 MG CAP ONE (11:19)
[2019-10-04] MEDS: LR 500ML BOLUS, THEN 15ML/HR IV SCH ×2 (11:20→12:30)
[2019-10-04] MEDS ORDERED: BACITRACIN INJ 50,000 UNIT VIAL ONE (11:28)
[2019-10-04] MEDS ORDERED: fentaNYL citrate 100 MCG/2 ML VIAL IV PRN (12:23)
[2019-10-04] MEDS ORDERED: ePHEDrine sulfate 50 MG/ML AMP IV PRN (12:23)
[2019-10-04] MEDS ORDERED: ATROPINE SULFATE 0.1 MG/ML 10ML SYR IV PRN (12:23)
[2019-10-04] MEDS ORDERED: ONDANSETRON INJ 2 MG/ML 2 ML VIAL IV PRN ×2 (12:23→15:53)
[2019-10-04] MEDS ORDERED: ONDANSETRON INJ 2 MG/ML 2 ML VIAL ONE (13:28)
[2019-10-04] MEDS ORDERED: PHENYLEPHRINE 100MCG/ML 5ML SYR ONE ×2 (13:28→14:14)
[2019-10-04] MEDS ORDERED: LIDOCAINE HCL 2% 2 ML VIAL/AMP(20MG/ML) INFIL ONE (13:28)
[2019-10-04] MEDS ORDERED: PROPOFOL IV EMULSION 10 MG/ML 20 ML VIAL IV ONE (13:28)
[2019-10-04] MEDS ORDERED: ePHEDrine sulfate 50 MG/ML AMP ONE (13:35)
[2019-10-04] MEDS ORDERED: EPINEPHrine INJ 1 MG/ML AMP ONE (14:13)
[2019-10-04] MEDS ORDERED: BUPIVACAINE 0.5 % 5 MG/1 ML MPF 30ML VIAL ONE (14:13)
--- NOTE | 2019-10-04 14:32 | Post Operative Brief Note ---
Immediate Post Op Note v1 Date of Surgery October 04, 2019 Pre & Post Diagnosis Operation Date: 10/04/19 12:50 Pre-Op Diagnosis: Broken Internal Right Hip Prosthesis Post-Op Diagnosis: Broken Internal Right Hip Prosthesis I identified the patient and participated in the time-out.: No Procedure Operation Date: 10/04/19 12:50 Actual Procedures p Right Total Hip Revision(Right) - Derrek Wong DO Surgeon Derrek Wong DO Truck Dispatcher Ramy Ayala Estimated Blood Loss 150 Findings Consistent with Post-Op Diagnosis Fluids 1600 cc LR Anesthesia Type Spinal MAC Complications none Disposition Disposition: Recovery Room Overlapping Procedure I was present for: the critical portions of procedure. I was immediately available: during the entire case. Back up surgeon: was not required during procedure.
--- NOTE | 2019-10-04 14:45 | Operative Report ---
Post Operative Report Pre & Post Diagnosis Operation Date: 10/04/19 12:50 Pre-Op Diagnosis: Failed Right Hip Prosthesis Post-Op Diagnosis: Failed Right Hip Prosthesis I identified the patient and participated in the time-out.: No Procedure Operation Date: 10/04/19 12:50 Actual Procedures p Right Total Hip Revision(Right) - Derrek Wong DO Surgeon Derrek Wong DO Upkeep Worker Ramy Ayala Estimated Blood Loss 150 Findings Consistent with Post-Op Diagnosis Fluids 1600 cc LR Specimens Femoral head and acetabular liner Anesthesia Type Spinal MAC Complications none Disposition Disposition: Recovery Room Description of Procedure Following induction of adequate spinal anesthesia, the patient was transferred to the OR table and placed in lateral decubitus position with left hip down. The right hip was prepped and draped in the typical sterile fashion and a posterolateral/Sheryl-Langenbeck incision was made inline with the proximal aspect of the previous incision extending proximally into the posteriolateral approach. Subcutaneous tissue was sharply dissected. Electrocautery was utilized for hemostasis. The fascia was incised throughout the length of the wound and retracted with the Charnley retractor. Retained suture from previous surgery was removed. The bursa was taken down and the short external rotators and capsule were identified and tagged with two #1 Vicryl sutures. The short external rotators and capsule were divided from the posterior aspect of the femur using electrocautery. Both external rotators and posterior capsule were swept posterior and protected, along with protecting the sciatic nerve. Total hip prosthesis was identified. There was significant particle debris in surrounding soft tissue. Meticulous removal of intra-articular scar/soft tissue was performed with bovie. The hip prosthesis was dislocated by flexion and internal rotation in a controlled manner. The femoral head was removed from the trunion, which was clean and was without signs of wear. The femoral stem stability assessed and found to be stable without signs of loosening. Next, exposure of the acetabulum was obtained. Additional scar tissue removal and debridement of the intra-articular soft tissue was performed. Utilizing osteotome the liner was removed. The polyethylene liner demonstrated superior wear with complete wear through the superior lateral aspect the liner. Acetabular cup stability was assessed and found to be stable and without signs of loosening. Next, a Ringloc 48 SZ 22+3 trail liner was inserted and locked into place. A 32+6 femoral head was placed onto the stem and a trial reduction was carried out. The hip was found to be stable in all degrees of rotation with hip flexion and extension with no impingement and leg lengths were equal. The hip was dislocated once more, trial components were removed and access to the acetabulum was re-established. The trial liner was removed and the cup was irrigated to ensure all debris was removed. A final Ringloc 48 SZ 22+3 acetabular liner was inserted and properly seated. Access to the proximal femur was once more gained and the final 32+6 mm femoral head was impacted into place and the hip was reduced. Range of motion was checked once again and found to be stable. A Betadine soak was performed for 3 minutes. The wound was copiously irrigated with sterile saline solution with bacitracin. The anjel-incisional soft tissue was injected utilizing [place] ortho mix which includes a combination of Ropivicaine 0.5% 150mg, Bupivicaine 0.5%/Epinephrine 1:200,000 30ml, Toradol 30mg, Dexamethasone 4mg, Ketamine 10mg, Clonidine 100mcg and NSS 30ml solution. The external rotators and capsule were repaired to the greater trochanter using #5 FiberWire. The fascia was closed using #1 Vicryl, subcutaneous tissue was closed using 2-0 Vicryl, and skin was closed with loren. Sterile dressings were applied which included Kim incisional VAC. A abduction pillow was placed between the legs. The patient tolerated the procedure well and was transported to PACU in stable condition. Due to the complex nature of the procedure, the entire surgery was performed with the operational assistance of Ramy Ayala PA-C. The paralegal assistant, under direct supervision, was involved in the actual performance of all aspects of the surgical procedure including patient positioning, hemostasis, tissue retraction, instrument management and wound closure. I attest to the content of the Intraoperative Record and any orders documented therein. Any exceptions are noted below.
--- NOTE | 2019-10-04 15:09 | Anesthesiology Progress Note ---
Date of Service October 04, 2019 Anesthesia Post Procedure Vital Signs Vital Signs: Temp Pulse Pulse Resp BP Pulse Ox 10/04/19 15:05 77 16 97/55 L 95 10/04/19 14:55 97.3 F L 84 16 116/64 99 10/04/19 10:55 98.2 F 79 20 129/78 96 Pain Intensity Right Hip: Pain Intensity: 2 Transfer of Care Handoff Completed per policy Notes Mental Status: alert / awake / arousable and participated in evaluation Patient Amnestic to Procedure: Yes Nausea / Vomiting: adequately controlled Pain: adequately controlled Airway Patency, RR, SpO2: stable & adequate BP & HR: stable & adequate Hydration State: stable & adequate Neuraxial Anesthesia: was administered and sensory block is resolving Anesthetic Complications: no major complications apparent and Pt Satisfied with anesthetic care
--- NOTE | 2019-10-04 15:36 | XRay Report ---
XR hip 1V RT w pelvis HISTORY: 74 years-old Female IN PACU - A/P PELVIS and LATERAL HIP right hip total joint arthroplast y COMPARISON: Pelvis and left hip radiographs 01/04/2019 TECHNIQUE: AP view of the pelvis with crosstable lateral view of the right hip FINDINGS: Right hip total joint arthroplasty demonstrates satisfactory alignment. Lateral skin loren are note d along with expected postsurgical soft tissue swelling and deep tissue air. Unremarkable left hip to henry joint arthroplasty. Degenerative changes of the SI joints and lumbar spine. Mildly demineralized appearance of the bones. No acute periprosthetic fracture or retained foreign body identified. IMPRESSION: Satisfactory alignment of the right hip total joint arthroplasty. The above report was generated using voice recognition software. It may contain grammatical, syntax o r spelling errors. Electronically signed by: Oneil Dickey M.D. 10/04/2019 3:34 PM
[2019-10-04] MEDS ORDERED: HYDROmorphone INJ 0.5 MG/0.5 ML SYR IV PRN (15:53)
[2019-10-04] MEDS ORDERED: METOCLOPRAMIDE HCL INJ 5 MG/ML 2 ML VIAL IV PRN (15:53)
[2019-10-04] MEDS ORDERED: NALOXONE HCL 0.4 MG/1 ML VIAL/CARP IV PRN (15:53)
[2019-10-04] MEDS ORDERED: BISACODYL 10 MG SUPP PR PRN (15:53)
[2019-10-04] MEDS ORDERED: MAGNESIUM HYDROXIDE SUSP 30 ML UDC PO PRN (15:53)
[2019-10-04] MEDS: KETOROLAC TROMETHAMINE 15 MG/ML VIAL IV SCH ×2 (16:59→21:56)
[2019-10-04] MEDS: SODIUM CHLORIDE 0.9% 1000ML 1,000 ML IV SCH (17:11)
--- NOTE | 2019-10-04 17:55 | Orthopedic Progress Note ---
Date of Service October 04, 2019 Assessment & Plan (1) Failed total hip arthroplasty: s/p Revision R ANDRES, head and liner exchange -ancef x 24 -DVT ppx: SCDs, TEDs, ASA BID -WBAT RLE -PT/OT -PO XR demonstrates well aligned well fixed total hip prothesis, greater trochanter osteolysis, no fx/dislocation -am labs -DC planning Subjective Post Operative Progress Note Patient seen in PACU, comfortable, denies complaints, pain well controlled, no acute issues. Denies F/C/N/V/SOP/CP. Still feeling effects of spinal. Review of Systems Review of Systems: All systems reviewed & are unremarkable except as noted in HPI & below Constitutional: as per Subjective / HPI Physical Exam Physical Exam: RLE PE limited secondary to spinal, +2 DP pulse, compartments soft NT, dressing CDI. Constitutional: WD/WN, vitals as above Results & Data Vital Signs (Past 12 Hours) Vital Signs Temp Pulse Pulse Resp BP Pulse Ox 10/04/19 16:45 36.8 C 93 H 17 102/65 99 10/04/19 16:20 36.6 C 81 18 123/74 99 10/04/19 15:45 36.5 C 77 18 102/64 99 10/04/19 15:25 36.4 C L 78 16 109/70 98 10/04/19 15:15 36.4 C L 74 16 96/72 L 96 10/04/19 15:05 77 16 97/55 L 95 10/04/19 14:55 36.3 C L 84 16 116/64 99 10/04/19 10:55 36.8 C 79 20 129/78 96
[2019-10-04] MEDS: OXYCODONE HCL IR 5 MG TAB (IMMEDIATE RELEASE) PO PRN ×2 (18:12→23:24)
[2019-10-04] MEDS ORDERED: SENNA 8.6 MG TAB PO SCH (21:00)
[2019-10-04] MEDS: DOCUSATE SODIUM 100 MG CAP PO SCH (21:17)
[2019-10-04] MEDS: ACETAMINOPHEN 500 MG TAB PO SCH (21:56)
[2019-10-04] MEDS: CEFAZOLIN 1000MG 1,000 MG/7.5 ML SYR IV SCH (21:56)
[2019-10-05] MEDS: OXYCODONE HCL IR 5 MG TAB (IMMEDIATE RELEASE) PO PRN ×3 (03:27→13:17)
[2019-10-05] MEDS: SODIUM CHLORIDE 0.9% 1000ML 1,000 ML IV SCH (05:01)
[2019-10-05 05:37] LABS: Basophils # (auto) 0.01 K/uL (0-0.2); Basophils % (auto) 0.1 %; Hematocrit (blood only) 29.6 % (37-47); Hemoglobin 9.9 g/dL (12.0-16.0); Immature Granulocytes # (auto) 0.01 K/uL (0.00-0.02); Immature Granulocytes % (auto) 0.1 %; Lymphocytes # (auto) 1.14 K/uL (1.2-3.4); Lymphocytes % (auto) 10.6 %; Mean Corpuscular Hemoglobin 30.9 pg (25-34); Mean Corpuscular Hgb Conc 33.4 g/dL (32-36); Mean Corpuscular Volume 92.5 fL (80-100); Mean Platelet Volume 10.2 fL (7.4-10.4); Monocytes # (auto) 1.12 K/uL (0.11-0.59); Monocytes % (auto) 10.4 %; Neutrophils % (auto) 78.8 %; Platelet Count 210 K/uL (130-400); RDW Coefficient of Variation 13.5 % (11.5-14.5); RDW Standard Deviation 45.3 fL (36.4-46.3); White Blood Count 10.78 K/uL (4.8-10.8)
[2019-10-05] MEDS: ACETAMINOPHEN 500 MG TAB PO SCH ×2 (05:43→13:17)
[2019-10-05] MEDS: CEFAZOLIN 1000MG 1,000 MG/7.5 ML SYR IV SCH (05:44)
[2019-10-05] MEDS: KETOROLAC TROMETHAMINE 15 MG/ML VIAL IV SCH ×2 (05:44→10:01)
[2019-10-05 05:59] LABS: BUN Creatinine Ratio 25.5 (10-20); Calcium 8.4 mg/dl (8.5-10.1); Creatinine Clr Calc Pharmacy 67.3 ml/min; Est GFR (African American) 99.7; Potassium 4.2 mmol/L (3.5-5.1)
--- NOTE | 2019-10-05 07:57 | Orthopedic Progress Note ---
Date of Service October 05, 2019 Assessment & Plan (1) Failed total hip arthroplasty: s/p Revision R ANDRES, head and liner exchange -ancef x 24 -DVT ppx: SCDs, TEDs, ASA BID -WBAT RLE -PT/OT -PO XR demonstrates well aligned well fixed total hip prothesis, greater trochanter osteolysis, no fx/dislocation -am labs - hgb 9.9 -DC planning - home with HH Subjective Post Operative Progress Note Patient seen sitting in chair at bedside, comfortable, denies complaints, pain well controlled, no acute issues. Denies F/C/N/V/SOP/CP. Review of Systems Review of Systems: All systems reviewed & are unremarkable except as noted in HPI & below Constitutional: as per Subjective / HPI Physical Exam Physical Exam: RLE NVSI +EHL/FHL/TA/GS SILT grossly, +2 DP pulse, compartments soft NT, dressing cdi. Constitutional: WD/WN, vitals as above Results & Data Vital Signs (Past 12 Hours) Vital Signs Temp Pulse Resp BP Pulse Ox 10/05/19 06:50 36.7 C 68 18 108/60 97 10/05/19 03:30 36.8 C 79 18 114/58 L 95 10/04/19 23:07 36.6 C 74 18 110/63 95 10/04/19 20:51 36.7 C 82 17 114/66 97
[2019-10-05] MEDS: DOCUSATE SODIUM 100 MG CAP PO SCH (08:22)
[2019-10-05] MEDS ORDERED: ROSUVASTATIN CALCIUM 10 MG TAB PO SCH (09:00)
[2019-10-05] MEDS ORDERED: ASPIRIN 325 MG ECTAB PO SCH (09:00)
[2019-10-05] MEDS ORDERED: MULTIVITAMIN TAB PO SCH (09:00)
[2019-10-05] MEDS ORDERED: CeleBREX 200 MG CAP PO SCH (21:00)
--- NOTE | 2019-10-06 21:57 | Discharge Summary ---
Date of Service October 06, 2019 Admission HPI Per Admitting Provider The patient is a 74 year old female who presents with complaints of chronic progressing painful right ANDRES with ecentric wear of the polyethelene liner. The patient has failed outpatient conservative treatments to this point which included close monitoring with serial XRs, NSAIDs, PT and home exercise/walking program. The patient's pain and limited function have progressed to the point where they severely hinder their activities of daily living and they no longer tolerate exercise programs. They are requesting to proceed with total hip replacement surgery. Principal Diagnosis Revision right total hip replacement, head and liner exchange Discharge Exam RLE NVSI +EHL/FHL/TA/GS SILT grossly, +2 DP pulse, compartments soft NT, dressing cdi. Constitutional WD/WN, vitals as above Discharge Data Allergies Allergy/AdvReac Type Severity Reaction Status Date / Time No Known Allergies Allergy Verified 10/04/19 10:47 Consultations 10/05/19 08:00 Consult Case Management - Discharge Planning Routine Procedures Performed Operation Date: 10/04/19 12:50 Actual Procedures p Right Total Hip Revision(Right) - Derrek Wong DO Hospital Course (1) Failed total hip arthroplasty: The patient is a 74 -year-old female who presents with painful right total hip replacement with eccentric wear of the polyethelyne liner and failed outpatient conservative treatments. The patient's symptoms have progressed to the point where it has been difficult to perform even normal activities of daily living. I indicated the patient for a revision right total hip arthroplasty, the risks, benefits and complications of the procedure include but not limited to infection, bleeding, damage to bone, nerves, vessels, surrounding soft tissue, may develop blood clots, loss of function, leg length discrepancy, dislocation, failure of the components, loosening of the components, the need for additional surgery and . The patient wished to proceed with surgery at this time and informed consent was obtained. Hospital Course: On 10/04/19 the patient was taken to the operating room, adequate anesthesia administered and underwent a revision right total hip arthroplasty with head and liner exchange. The patient tolerated the procedure well and was taken to the PACU in stable condition. Post-operatively the patient was started on a DVT ppx medication and given appropriate IV antibiotics. Consults were placed to physical therapy, occupational therapy and case management. On POD#1, the patient did well overnight and their pain was well controlled. Labs were drawn and the Hgb was 9.9. The patient progressed well with PT. Dressings were changed at this time and the incision was clean, dry and intact. The patients hospital stay was relatively uneventful and they were deemed stable by the orthopedic team and consultants to be discharged home with HH on 10/05/19. Discharge Instructions: Upon discharge the patient may weight bear as tolerates through their operative extremity. They were instructed to keep the incision clean and dry at all times. The patient may shower but should not submerge the incision, avoid bathing, pools and hot tubes. The patient was given a script for pain medication and should take as instructed. The patient was given a script for DVT ppx 325mg ASA BID and should take as directed. The patient was instructed to not drive or travel for long distances until cleared to do so. If the patient develops any symptoms of fevers, chills, nausea, vomiting, increased redness, swelling, pain or drainage from the surgical site, they should notify the office and/or proceed to the nearest emergency room. The patient should follow up in 10-14 days after surgery for their routine post-operative follow-up appointment and should call the office to confirm the date and time. s/p Revision R ANDRES, head and liner exchange -ancef x 24 -DVT ppx: SCDs, TEDs, ASA BID -WBAT RLE -PT/OT -PO XR demonstrates well aligned well fixed total hip prothesis, greater trochanter osteolysis, no fx/dislocation -am labs - hgb 9.9 -DC planning - home with Total Time Total Time Spent Total Time Spent (In Minutes): 30 minutes Discharge Plan Discharge Items Patient Disposition: Home - Home Health Services Reason For Visit: Broken Internal Right Hip Prosthesis Discharge Diagnosis: Revision right total hip replacement, head and liner exchange Condition on Discharge: Good Activity: Per Instructions section Lifting: Wait until after follow-up appointment Bathing: Keep incision dry Bathing Comment: No bathing, pools or hot tubs. Sexual Activity: Wait until after follow-up appointment Exercise/Sports: Wait until after follow-up appointment Driving/Machine Use: No driving Weightbearing: Full weightbearing Non-emergency contact: Primary Care Provider and Surgeon Call non-emergency contact if: you have any medication questions, your symptoms worsen, your pain is not controlled, your pain is worsening, your pain is unusual for you, your pain is concerning for you, you have a fever, your temperature is above 101, your wound has increased redness, your wound has increased drainage and your wound pain has increased Follow-up/Referrals: Zuleyma Kern PA-C [Primary Care Provider] - Diet: Regular Addtl Attending Provider Instructions: ACTIVITY RECOMMENDATIONS: SELF CARE INSTRUCTIONS AFTER TOTAL HIP REPLACEMENT Until the incision and soft tissues around your hip have healed, there is a possibility that the hip prosthesis could dislocate. A. Observe the following precautions to prevent dislocation: 1. Don't bend your hip greater than 90 degrees. 2. Avoid crossing your legs or ankles while standing or lying. 3. Sit with your feet placed 6 inches apart. 4. When sitting, keep your knees below your hips. Sit on a firm surface, avoid deep, soft chairs and couches. Use an elevated toilet seat in the bathroom. 5. Don't bend over at the waist. Use a long handled shoehorn and a sock aid to help you put on your shoes and socks. A metal model maker can help you fruit picker machine operator objects that are too high or too low to reach. 6. Keep car riding to a minimum for at least one month after surgery. B. Your balance may be shaky for a while. Use crutches or a walker until directed by your doctor. C. Use hand rails when walking on stairs. D. Wear low heeled shoes with non-slip soles. E. Be sure that your floors are free of things that could trip you - throw rugs, electrical cords, small objects. Avoid wet and waxed floors, especially with crutches and canes. F. Try to walk several times a day with rest periods between. G. Continue with all the exercises taught to you in the hospital. Again, make walking a part of your daily routine. SPECIAL CARE INSTRUCTIONS: VERY IMPORTANT TO READ AND REVIEW A. You may still be at risk for phlebitis and blood clots. 1. Wear surgical stockings (LUCI hose) for 2 weeks after surgery to improve circulation and reduce swelling. 2. Take Aspirin 325mg twice daily for 4 weeks or as directed by your doctor. This is your blood thinner. 3. High risk patients may be prescribed a stronger blood thinner if necessary. 4. If you are on Coumadin normally, your family doctor/kiln operator helper should monitor your blood work. Expect a phone call the day of or the day af ter bloodwork is drawn to adjust your dosage. B. You must take antibiotics before having dental work, bladder, bowel and other surgery. Your doctor will provide you with a permanent card to carry describing precautions. C. Call [facility] if you have a fever, redness or swelling around the incision, cloudy drainage from incision, or sudden increase in pain in your hip, not relieved by your regular pain medication. D. Please call the office at if you have any concerns or questions about your operation or recovery. * YOU MAY SHOWER, NO TUB BATHS UNTIL CLEARED BY YOUR DOCTOR. * WEAR LUCI HOSE 20 HOURS PER DAY FOR 2 WEEKS. * YOU SHOULD USE A WALKER OR CRUTCHES FOR 2-4 WEEKS. THIS WILL HELP PREVENT STRAIN ON YOUR HIP MUSCLE AND ALLOW IT TO HEAL PROPERLY. YOU MAY WEAN TO A CANE TOLERATED. * MOST PATIENTS WILL HAVE HOME NURSING FOR THERAPY. IF YOU DECIDE TO DO OUTPATIENT PHYSICAL THERAPY, PLEASE SCHEDULE THIS 3 TIMES PER WEEK. *PREVENA incisional vac is a special dressing covering your incision. This dressing provides a sterile dry environment while you are healing. The dressing is to be left in place for 7 days post-operatively. Your home nurse or surgeon will remove. If you develop any redness or blisters or have any questions notify your surgeon immediately. FOLLOW UP VISIT: If appointment is not already scheduled: Please call [facility] to make a follow-up appointment for 2 weeks after your surgery at . Pending Studies at Discharge: No Stand-Alone Forms: My [facility], Opioid Pain Management, Smoking Cessation Medications and DC Order Prescriptions: New oxycodone 5 mg tablet 5 mg PO Q6H MDD 6 tabs PRN (Reason: pain) Qty: 30 RF: 0 acetaminophen 500 mg capsule 1,000 mg PO Q8H PRN (Reason: fever or pain) Qty: 90 RF: 0 aspirin 325 mg tablet 325 mg PO BID Qty: 56 RF: 0 senna 8.6 mg capsule 8.6 mg PO BID PRN (Reason: constipation) Qty: 28 RF: 0 celecoxib [Celebrex] 200 mg capsule 200 mg PO BID PRN (Reason: pain/inflammation) Qty: 28 RF: 0 Continued montelukast 10 mg Tablet 10 mg PO DAILY PRN (Reason: allergies) RF: 0 rosuvastatin [Crestor] 10 mg Tablet 10 mg PO QAM RF: 0 multivitamin Tablet 1 tab PO QAM RF: 0 Calcium 600 + D(3) 600 mg calcium- 200 unit Capsule 1 tab PO QAM RF: 0 docusate sodium [Stool Softener] 100 mg Capsule 100 mg PO QAM RF: 0 cholecalciferol (vitamin D3) [Vitamin D3] 400 unit Tablet 400 unit PO QAM RF: 0 biotin 5,000 mcg Tablet,Disintegrating 10,000 mcg PO QAM RF: 0 Discontinued acetaminophen [Pain Reliever] 500 mg Tablet 1,000 mg PO Q8H PRN (Reason: pain) Qty: 90 RF: 0 Discharge Orders: Discharge Order (Routine); Ordered 10/05/19 Ordered By: Derrek Fuentes/Other Patient Handouts: DVT, ED Stockings Luci Admission Data Admit Date/Time: 10/04/19 14:59 Attending Provider: Derrek Wong Admit Provider: Derrek Wong Primary Care Provider: Zuleyma Kern Other Interventions: Discharge Summary Assessment (RN) Last Done: 10/05/19 09:15 DC Date/Time DO NOT enter until pt leaves facility: 10/05/19 14:27
== END 2019-10-05 14:27 | disposition home health service (06) | DRG 468 ==
LOC: ASU 10:11 → 3E 14:59

== ENCOUNTER 2020-04-25 09:20 | Inpatient (IN) ==
--- NOTE | 2020-04-05 14:30 | Anesthesiology Consultation ---
Date of Service April 05, 2020 Assessment & Plan (1) Encounter for pre-operative examination: COVID Status: As of nurse interview on 03/23, patient denies travel outside of [facility], known exposure/sick contacts, symptoms, or testing for coronavirus. Chart Review Chart Review: Acceptable Risk for Surgery and Patient NOT seen in Pre Admission Testing History Surgery Operation Date: 04/25/20 07:15 Proposed Procedures p Right Total Hip Arthroplasty Revison - Derrek Wong DO Height/Weight Height: 5 ft 3.5 in Weight: 67.585 kg Allergies Allergy/AdvReac Type Severity Reaction Status Date / Time No Known Allergies Allergy Verified 03/23/20 10:33 Medications Home Medications Medication Instructions Recorded Confirmed Last Taken Calcium 600 + D(3) 1 tab PO QAM 12/10/18 03/23/20 12/21/18 09:00 montelukast 10 mg PO DAILY PRN 12/10/18 03/23/20 10/03/19 08:00 multivitamin 1 tab PO QAM 12/10/18 03/23/20 01/03/19 09:30 rosuvastatin [Crestor] 10 mg PO QAM 12/10/18 03/23/20 10/03/19 08:00 biotin 10,000 mcg PO QAM 09/09/19 03/23/20 2 Weeks Ago ~09/20/19 cholecalciferol (vitamin D3) 400 unit PO QAM 09/09/19 03/23/20 2 Weeks Ago [Vitamin D3] ~09/20/19 docusate sodium [Stool Softener] 100 mg PO QAM 09/09/19 03/23/20 10/03/19 08:00 Past Medical History Medical History DJD (degenerative joint disease) PATIENT HAS HAD A REVISION OF THE RIGHT HIP AND IT HAS CAME OUT OF PLACE X 2. THIS SURGERY IS NEEDED TO KEEP THE HIP IN PLACE. Glaucoma (increased eye pressure) HISTORY OF GLAUCOMA. HAD SURGERY AND PRESSURE IS MONITORED AND CURRENTLY WNL AND STABLE. High cholesterol Past Family History Family History Father Family hx of colon cancer Mother Family hx of colon cancer Father No problems noted. Past Surgical History Surgical History (Updated 04/05/20 @ 14:20 by Jack Patel) History of bunionectomy of right great toe History of glaucoma tube shunt procedure (Acute) History of left hip replacement Left ANDRES: 01/04/19: SAB x 1 at L3-L4 at [facility] History of revision of total replacement of right hip joint 09/2019 [facility]. SAB x 1 attempt. History of right hip replacement S/P cataract extraction S/P colonoscopy Social History Smoking Status: Never smoker Do You Dip or Chew Tobacco: No Hx Alcohol Use: Yes Alcohol type: wine alcohol intake frequency: a few times a week Hx Substance Use: No Testing Laboratory Results 03/29/20 WBC: 5.70 H/H: 13.0/38.5 PLATELETS: 291 SODIUM: 137 POTASSIUM: 3.8 CHLORIDE: 104 CO2: 27 BUN: 14 CREATININE: 0.67 GLUCOSE: 96 A1C: 5.3% PT: 11.4 PTT: 27.3 INR: 0.99 Urine culture: mixed mckenzie. Electrocardiogram Date: 03/29/20 Sinus rhythm @ 74bpm with occasional supraventricular premature complexes. Chest X-Ray Date: 03/29/20 Findings: + NAD
--- NOTE | 2020-04-24 20:03 | History & Physical Report ---
Date of Service April 25, 2020 Assessment & Plan (1) Failure of right total hip arthroplasty with dislocation of hip: I have indicated the patient for revision right total hip replacement, acetabulum with constrained liner. The risks, benefits and complications of surgery were explained to the patient which include but not limited to infection, acute blood loss, DVT/PE, injury to nerves, vessels, bone, soft tissue, arthrofibrosis, chronic pain, failure of the prosthesis, hip dislocation, leg length discrepancy, need for additional surgery, cardiac and pulmonary events and . The patient wished to proceed with surgery and informed consent was obtained at this time. We will plan for Lovenox post- operatively for DVT prophylaxis. Upon discharge the patient will be discharged home with home health services. Appropriate clearances by PCP were obtained. 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 Patient underwent previous revision right ANDRES, head and freya exchange on 10/04/19 secondary to eccentric wear of her polyethylene liner. The patient has failed outpatient con servative treatments to this point which included NSAIDs, bracing, PT and a home exercise/walking program. Due to patient's recurrent instability they are requesting to proceed with total hip replacement surgery. Allergies Allergy/AdvReac Type Severity Reaction Status Date / Time No Known Allergies Allergy Verified 03/23/20 10:33 Home Medications Home Medications Medication Instructions Recorded Confirmed Type Calcium 600 + D(3) 1 tab PO QAM 12/10/18 03/23/20 History montelukast 10 mg PO DAILY PRN 12/10/18 03/23/20 History multivitamin 1 tab PO QAM 12/10/18 03/23/20 History rosuvastatin [Crestor] 10 mg PO QAM 12/10/18 03/23/20 History biotin 10,000 mcg PO QAM 09/09/19 03/23/20 History cholecalciferol (vitamin D3) 400 unit PO QAM 09/09/19 03/23/20 History [Vitamin D3] docusate sodium [Stool Softener] 100 mg PO QAM 09/09/19 03/23/20 History Past Med/Surg History Medical History DJD (degenerative joint disease) PATIENT HAS HAD A REVISION OF THE RIGHT HIP AND IT HAS CAME OUT OF PLACE X 2. THIS SURGERY IS NEEDED TO KEEP THE HIP IN PLACE. Glaucoma (increased eye pressure) HISTORY OF GLAUCOMA. HAD SURGERY AND PRESSURE IS MONITORED AND CURRENTLY WNL AND STABLE. High cholesterol Surgical History History of bunionectomy of right great toe History of glaucoma tube shunt procedure (Acute) History of left hip replacement Left ANDRES: 01/04/19: SAB x 1 at L3-L4 at [facility] History of revision of total replacement of right hip joint 09/2019 [facility]. SAB x 1 attempt. History of right hip replacement S/P cataract extraction S/P colonoscopy Family History Father Family hx of colon cancer Mother Family hx of colon cancer Father No problems noted. Social History Preferred Language: [place]at[place] Communication Ability: Effective Category Consultant Required: No Beliefs That Will Affect Care: None marital status: / Current Living Situation: Family Current Living Situation Comment: LIVES WITH SON Other Information That Helps Us Care for You: No Feels Safe at Home: Yes Safety Concerns: Feels Safe At This Time Smoking Status: Never smoker Do You Dip or Chew Tobacco: No ; Second Hand Exposure: No ; Tobacco Cessation Education Requested by Patient: No Hx Alcohol Use: Yes Alcohol type: wine Hx Substance Use: No Review of Systems Review of Systems: All systems reviewed & are unremarkable except as noted in HPI & below Constitutional: as per Subjective / HPI Physical Exam Physical Exam: RLE NVSI +EHL/FHL/TA/GS SILT grossly, +2 DP pulse, compartments soft NT, incision cdi. Constitutional: WD/WN, vitals as above Eyes: PERRL, conjunctivae normal, anicteric sclerae ENMT: external ear and nose normal, oropharynx normal Neck: trachea midline, no thyromegaly Respiratory: normal respiratory effort, lungs clear to auscultation Cardiovascular: RRR, no murmur, no edema Gastrointestinal (Abdomen): normal bowel sounds, soft, nontender, no hepatosplenomegaly Musculoskeletal: no cyanosis or clubbing, extremities motor strength 5/5 Skin: no rashes, warm and dry Neurologic: patellar DTR's 2+ bilat, sensation intact Psychiatric: A+Ox3, euthymic affect Lymphatic: no cervical or axillary lymphadenopathy Results & Data Results & Data ([place]) Diagnostic Findings XRs of the right hip demonstrates well aligned well fixed total hip prothesis without fracture/dislocation.
[~2020-04-25 09:20] MED LIST changes: +LR 500ML BOLUS, THEN 15ML/HR IV SCH; -MIDAZOLAM HCL 1 MG/ML 2ML VIAL ONE; +ROPIVACAINE 0.5% HCL/PF 150 MG, BUPIVACAINE 0.5% MPF 30 ML, EPINEPHrine 30MG/30ML (OR U... INFIL SCH; -ROPIVACAINE 0.5% HCL/PF 150 MG, BUPIVACAINE 0.5% MPF 30 ML, EPINEPHrine 30MG/30ML (OR U... INSTIL SCH; -fentaNYL citrate 100 MCG/2 ML VIAL ONE
[2020-04-25] MEDS ORDERED: PROPOFOL IV EMULSION 10 MG/ML 20 ML VIAL IV ONE (09:50)
[2020-04-25] MEDS ORDERED: MIDAZOLAM HCL 1 MG/ML 2ML VIAL ONE (09:50)
--- NOTE | 2020-04-25 09:52 | History & Physical Bridge Note ---
Date of Service April 25, 2020 History & Physical Bridge Note I have examined the patient, reviewed the History & Physical and in the interval since the performance of the History & Physical I have noted the following changes of clinical significance: no changes noted
[2020-04-25] MEDS ORDERED: ORTHO JOINT ANESTHETIC ONE (10:59)
[2020-04-25] MEDS ORDERED: BACITRACIN INJ 50,000 UNIT VIAL ONE (10:59)
[2020-04-25] MEDS ORDERED: fentaNYL citrate 100 MCG/2 ML VIAL ONE (11:43)
[2020-04-25] MEDS ORDERED: ATROPINE SULFATE 0.1 MG/ML 10ML SYR IV PRN (14:07)
[2020-04-25] MEDS ORDERED: fentaNYL citrate 100 MCG/2 ML VIAL IV PRN (14:07)
[2020-04-25] MEDS ORDERED: ePHEDrine sulfate 50 MG/ML AMP IV PRN (14:07)
[2020-04-25] MEDS ORDERED: ONDANSETRON INJ 2 MG/ML 2 ML VIAL IV PRN ×2 (14:07→16:03)
[2020-04-25] MEDS ORDERED: ePHEDrine sulfate 50 MG/ML SYR ONE (14:12)
--- NOTE | 2020-04-25 14:22 | Post Operative Brief Note ---
Immediate Post Op Note v1 Date of Surgery April 25, 2020 Pre & Post Diagnosis Operation Date: 04/25/20 11:35 Pre-Op Diagnosis: Failure of right total hip arthroplasty with dislocation of hip Post-Op Diagnosis: Failure of right total hip arthroplasty with dislocation of hip I identified the patient and participated in the time-out.: Yes Procedure Operation Date: 04/25/20 11:35 Actual Procedures p Right Total Hip Arthroplasty Revison(Right) - Derrek Wong DO Surgeon Derrek Wong DO Desulphurizer Operator Dragan purdy Estimated Blood Loss 195 Findings Consistent with Post-Op Diagnosis Fluids 1700 Specimens Acetabular cup and polyethylene liner Acetabular screws x2 Drains Hemovac Drain Anesthesia Type Spinal MAC Complications none Disposition Disposition: Recovery Room Overlapping Procedure I was present for: the critical portions of procedure. I was immediately available: during the entire case. Back up surgeon: was not required during procedure.
--- NOTE | 2020-04-25 14:23 | Operative Report ---
Post Operative Report Pre & Post Diagnosis Operation Date: 04/25/20 11:35 Pre-Op Diagnosis: Failure of right total hip arthroplasty with dislocation of hip Post-Op Diagnosis: Failure of right total hip arthroplasty with dislocation of hip I identified the patient and participated in the time-out.: Yes Procedure Operation Date: 04/25/20 11:35 Actual Procedures p Right Total Hip Arthroplasty Revison(Right) - Derrek Wong DO Surgeon Derrek Wong DO Photograph Enlarger Dragan purdy Estimated Blood Loss 195 Findings Consistent with Post-Op Diagnosis Fluids 1700 cc LR Specimens Acetabular cup and polyethylene liner Acetabular screws x2 Anesthesia Type Spinal MAC Complications none Disposition Disposition: Recovery Room Indications The patient is a 74 year old female who presents with complaints of recurrent instability of her right total hip with dislocation x2. Patient underwent previous revision right ANDRES, head and liner exchange on 10/04/19 secondary to eccentric wear of her polyethylene liner. The patient has failed outpatient conservative treatments to this point which included NSAIDs, bracing, PT and a home exercise/walking program. Due to patient's recurrent instability they are requesting to proceed with total hip replacement surgery. I have indicated the patient for revision right total hip replacement, acetabulum with constrained liner. The risks, benefits and complications of surgery were explained to the patient which include but not limited to infection, acute blood loss, DVT/PE, injury to nerves, vessels, bone, soft tissue, arthrofibrosis, chronic pain, failure of the prosthesis, hip dislocation, leg length discrepancy, need for additional surgery, cardiac and pulmonary events and . The patient wished to proceed with surgery and informed consent was obtained at this time. We will plan for Lovenox post- operatively for DVT prophylaxis. Upon discharge the patient will be discharged home with home health services. Appropriate clearances by PCP were obtained. Description of Procedure Components used: Biomet hip system: 50 G7 osteo-tie cup, G7 +5 [place] constrained 5036 liner, 36+6 [place] head, 35 mm, 25 mm, 20 mm acetabular screws. Following induction of adequate spinal anesthesia, the patient was transferred to the OR table and placed in lateral decubitus position with left hip down. The right hip was prepped and draped in the typical sterile fashion and a posterolateral/Sheryl-[place] incision was made inline with the previous incision. Subcutaneous tissue was sharply dissected. Electrocautery was utilized for hemostasis. The fascia was incised throughout the length of the wound and retracted with the [place] retractor. The bursa was taken down and the short external rotators and capsule were identified and tagged with two #1 Vicryl sutures. The short external rotators and capsule were divided from the posterior aspect of the femur using electrocautery. Both external rotators and posterior capsule were swept posterior and protected, along with protecting the sciatic nerve. Meticulous removal of intra-articular scar tissue was perform ed with bovie. The hip prosthesis was dislocated by flexion and internal rotation in a controlled manner. The femoral head was removed from the trunion, which was clean and was without signs of wear. The femoral stem stability assessed and found to be stable without signs of loosening. Next, exposure of the acetabulum was obtained. Additional scar tissue removal and debridement of the intra-articular soft tissue was performed. Utilizing the liner extraction tool the liner was removed. Next 2 acetabular screws were removed and the acetabular liner was reinserted. Utilizing the explant tool care was taken to disrupt the interface between the acetabular cup and bone circumferentially until the acetabular component was loose and removed with minimal bone loss. Underlying acetabular bone was noted to be very soft with cystic changes and ostial lysis. Sequential reaming of the acetabulum was performed starting at 44mm and carried up to a 50 mm and decision was made to proceed with impaction of a 50 mm multi hole G7 osteo-ti metal cup. This was impacted into place and found to be well secured and stable. Next we placed 3 acetabular screws measuring 35, 25 and 20mm. The trial +5 lateralized acetabular liner was placed at this time. A 36+5 femoral head was placed onto the stem and a trial reduction was carried out. The hip was found to be stable in all degrees of rotation with hip flexion and extension with no impingement and leg lengths were equal. The hip was dislocated once more, trial components were removed and access to the acetabulum was re-established. The trial liner was removed and the cup was irrigated to ensure all debris was removed. A final 50x36 mm +5 lateralized freedom constrained acetabular liner was inserted and properly seated. Access to the proximal femur was once more gained and the final 36+6 mm femoral head was impacted into place and the hip was reduced. Range of motion was checked once again and found to be stable. The wound was copiously irrigated with sterile saline solution with bacitracin. The anjel-incisional soft tissue was injected utilizing [place] ortho mix which includes a combination of Ropivicaine 0.5% 150mg, Bupivicaine 0.5%/Epinephrine 1:200,000 30ml, Toradol 30mg, Dexamethasone 4mg, Ketamine 10mg, Clonidine 100mcg and NSS 30ml solution. The external rotators and capsule were repaired to the greater trochanter through bone tunnels using #5 FiberWire. Hemovac drain was placed deep to the fascial layer. The fascia was closed using #1 Vicryl, subcutaneous tissue was closed using 2-0 Vicryl, and skin was closed with loren. Sterile dressings were applied which included Silverlon dressing. A abduction pillow was placed between the legs. The patient tolerated the procedure well and was transported to PACU in stable condition. Due to the complex nature of the procedure, the entire surgery was performed with the operational assistance of Dragan purdy PA-C. The clinical research assistant, under direct supervision, was involved in the actual performance of all aspects of the surgical procedure including patient positioning, hemostasis, tissue retraction, instrument management and wound closure. I attest to the content of the Intraoperative Record and any orders documented therein. Any exceptions are noted below.
--- NOTE | 2020-04-25 14:48 | XRay Report ---
XR hip 1V RT w pelvis CLINICAL HISTORY: IN PACU - A/P PELVIS and LATERAL HIP COMPARISON: 10/04/2019 DISCUSSION: Anatomic alignment post total right hip revision arthroplasty. Could contact between pros thetic and underlying bone. Total left hip arthroplasty in good position. Expected postoperative soft tissue change. IMPRESSION: Anatomic alignment posttotal right hip arthroplasty. ACT 112: Negative or not required by law. The above report was generated using voice recognition software. It may contain grammatical, syntax or spelling errors. Electronically signed by: Hermes Farris M.D. 04/25/2020 2:47 PM
--- NOTE | 2020-04-25 15:32 | Anesthesiology Progress Note ---
Date of Service April 25, 2020 Anesthesia Post Procedure Vital Signs Vital Signs: Temp Pulse Pulse Resp BP Pulse Ox 04/25/20 15:15 65 14 95/58 L 95 04/25/20 15:00 36.4 C L 66 16 90/56 L 98 04/25/20 14:50 69 16 99/57 L 97 04/25/20 14:40 74 15 93/59 L 97 04/25/20 14:34 36.3 C L 73 15 103/60 98 04/25/20 09:55 36.6 C 77 20 128/78 98 Transfer of Care Handoff Completed per policy Notes Mental Status: alert / awake / arousable Patient Amnestic to Procedure: Yes Nausea / Vomiting: adequately controlled Pain: adequately controlled Airway Patency, RR, SpO2: stable & adequate BP & HR: stable & adequate Hydration State: stable & adequate Neuraxial Anesthesia: was administered and sensory block is resolving Anesthetic Complications: no major complications apparent and Pt Satisfied with anesthetic care
[2020-04-25] MEDS ORDERED: bisacodyL 10 MG SUPP PR PRN (16:03)
[2020-04-25] MEDS ORDERED: NALOXONE HCL 0.4 MG/1 ML VIAL/CARP IV PRN (16:03)
[2020-04-25] MEDS ORDERED: MONTELUKAST SODIUM 10 MG TABLET PO PRN (16:03)
[2020-04-25] MEDS ORDERED: METOCLOPRAMIDE HCL INJ 5 MG/ML 2 ML VIAL IV PRN (16:03)
[2020-04-25] MEDS ORDERED: HYDROmorphone INJ 0.5 MG/0.5 ML SYR IV PRN (16:03)
[2020-04-25] MEDS ORDERED: MAGNESIUM HYDROXIDE SUSP 30 ML UDC PO PRN (16:03)
[2020-04-25] MEDS: SODIUM CHLORIDE 0.9% 1000ML 1,000 ML IV SCH (16:09)
--- NOTE | 2020-04-25 16:55 | Orthopedic Progress Note ---
Date of Service April 25, 2020 Assessment & Plan (1) Failure of right total hip arthroplasty with dislocation of hip: s/p Revision right ANDRES, acetabulum -ancef x 24 -DVT ppx: SCDs, TEDs, Lovenox daily -WBAT RLE -PT/OT -PO XR demonstrates well aligned well fixed prothesis without fracture/di slocation -am labs -DC planning Admission and Anticipated Discharge Date Admission Date: April 25, 2020 Subjective Post Operative Progress Note Patient seen in PACU, comfortable, denies complaints, pain well controlled, no acute issues. Still feeling effects of spinal anesthesia Review of Systems Review of Systems: All systems reviewed & are unremarkable except as noted in HPI & below Constitutional: as per Subjective / HPI Physical Exam Physical Exam: Limited PE RLE secondary to spinal anesthesia, +2 DP pulse, compartments soft NT, dressing CDI. Constitutional: WD/WN, vitals as above Results & Data ([place]) Vital Signs (Past 12 Hours) Vital Signs Temp Pulse Pulse Resp BP Pulse Ox 04/25/20 16:30 36.4 C L 69 18 118/68 97 04/25/20 16:01 36.6 C 65 18 111/66 95 04/25/20 15:15 65 14 95/58 L 95 04/25/20 15:00 36.4 C L 66 16 90/56 L 98 04/25/20 14:50 69 16 99/57 L 97 04/25/20 14:40 74 15 93/59 L 97 04/25/20 14:34 36.3 C L 73 15 103/60 98 04/25/20 09:55 36.6 C 77 20 128/78 98
[2020-04-25] MEDS ORDERED: SENNA 8.6 MG TAB PO SCH (21:00)
[2020-04-25] MEDS: CEFAZOLIN 2000MG 2,000 MG/15 ML SYR IV SCH (21:07)
[2020-04-25] MEDS: ACETAMINOPHEN 500 MG TAB PO SCH (21:07)
[2020-04-25] MEDS: DOCUSATE SODIUM 100 MG CAP PO SCH (21:07)
[2020-04-25] MEDS: OXYCODONE HCL IR 5 MG TAB (IMMEDIATE RELEASE) PO PRN (22:08)
[2020-04-26] MEDS: OXYCODONE HCL IR 5 MG TAB (IMMEDIATE RELEASE) PO PRN (02:11)
[2020-04-26] MEDS: SODIUM CHLORIDE 0.9% 1000ML 1,000 ML IV SCH (02:24)
[2020-04-26] MEDS: CEFAZOLIN 2000MG 2,000 MG/15 ML SYR IV SCH (04:30)
[2020-04-26] MEDS: ACETAMINOPHEN 500 MG TAB PO SCH ×2 (05:23→13:22)
[2020-04-26 07:07] LABS: Basophils # (auto) 0.02 K/uL (0-0.2); Basophils % (auto) 0.2 %; Hematocrit (blood only) 31.3 % (37-47); Hemoglobin 10.6 g/dL (12.0-16.0); Immature Granulocytes # (auto) 0.03 K/uL (0.00-0.02); Immature Granulocytes % (auto) 0.2 %; Lymphocytes # (auto) 1.18 K/uL (1.2-3.4); Lymphocytes % (auto) 9.6 %; Mean Corpuscular Hemoglobin 31.3 pg (25-34); Mean Corpuscular Hgb Conc 33.9 g/dL (32-36); Mean Corpuscular Volume 92.3 fL (80-100); Mean Platelet Volume 9.8 fL (7.4-10.4); Monocytes # (auto) 1.09 K/uL (0.11-0.59); Monocytes % (auto) 8.9 %; Neutrophils # (auto) 9.96 K/uL (1.4-6.5); Neutrophils % (auto) 81.1 %; Platelet Count 233 K/uL (130-400); RDW Standard Deviation 47.3 fL (36.4-46.3); Red Blood Count 3.39 M/uL (4.2-5.4); White Blood Count 12.28 K/uL (4.8-10.8)
[2020-04-26 07:37] LABS: BUN Creatinine Ratio 22.9 (10-20); Calcium 8.9 mg/dl (8.5-10.1); Creatinine Clr Calc Pharmacy 65.4 ml/min; Est GFR (African American) 98.7; Est GFR (Non-African American) 85.2; Potassium 4.3 mmol/L (3.5-5.1)
--- NOTE | 2020-04-26 08:20 | Orthopedic Progress Note ---
Date of Service April 26, 2020 Assessment & Plan (1) Failure of right total hip arthroplasty with dislocation of hip: s/p Revision right ANDRES, acetabulum POD#1 -ancef x 24 -DVT ppx: SCDs, TEDs, Lovenox daily -WBAT RLE -PT/OT -Dressing change -PO XR demonstrates well aligned well fixed prothesis without fracture/dislocation -am labs - hgb 10.6 -DC planning - home with HH Admission and Anticipated Discharge Date Admission Date: April 25, 2020 Subjective Post Operative Progress Note Patient seen sitting up in bed, comfortable, denies complaints, pain well controlled, no acute issues. Denies F/C/N/V/SOB/CP. Review of Systems Review of Systems: All systems reviewed & are unremarkable except as noted in HPI & below Constitutional: as per Subjective / HPI Physical Exam Physical Exam: RLE NVSI +EHL/FHL/TA/GS SILT grossly, +2 DP pulse, compartments soft NT, sanguinous drainage on dressing Constitutional: WD/WN, vitals as above Results & Data ([facility]) Vital Signs (Past 12 Hours) Vital Signs Temp Pulse Pulse Resp BP Pulse Ox 04/26/20 07:16 36.5 C 69 16 118/66 98 04/26/20 04:00 36.5 C 67 16 126/70 96 04/25/20 23:53 36.4 C L 63 15 110/65 97 Laboratory Results 04/26/20 04/26/20 04/25/20 Range/Units 06:51 06:51 09:43 WBC 12.28 H (4.8-10.8) K/uL RBC 3.39 L (4.2-5.4) M/uL Hgb 10.6 L (12.0-16.0) g/dL Hct 31.3 L (37-47) % MCV 92.3 (80-100) fL MCH 31.3 (25-34) pg MCHC 33.9 (32-36) g/dL RDW Std Deviation 47.3 H (36.4-46.3) fL RDW Coeff of Samuel 14.0 (11.5-14.5) % Plt Count 233 (130-400) K/uL MPV 9.8 (7.4-10.4) fL Immature Gran % (Auto) 0.2 % Neut % (Auto) 81.1 % Lymph % (Auto) 9.6 % [place] % (Auto) 8.9 % Eos % (Auto) 0.0 % Baso % (Auto) 0.2 % Immature Gran # (Auto) 0.03 H (0.00-0.02) K/uL Neut # (Auto) 9.96 H (1.4-6.5) K/uL Lymph # (Auto) 1.18 L (1.2-3.4) K/uL [place] # (Auto) 1.09 H (0.11-0.59) K/uL Eos # (Auto) 0.00 (0-0.5) K/uL Baso # (Auto) 0.02 (0-0.2) K/uL Sodium 137 (136-145) mmol/L Potassium 4.3 (3.5-5.1) mmol/L Chloride 106 (98-107) mmol/L Carbon Dioxide 26 (21-32) mmol/L Anion Gap 5.0 (3-11) BUN 16 (7-18) mg/dl Creatinine 0.69 (0.6-1.2) mg/dl Est Cr Clr Drug Dosing 65.4 ml/min Est GFR ( Amer) 98.7 Est GFR (Non-Af Amer) 85.2 BUN/Creatinine Ratio 22.9 H (10-20) Glucose 114 H (70-99) mg/dl Calcium 8.9 (8.5-10.1) mg/dl Blood Type A Positive Antibody Screen NEGATIVE
[2020-04-26] MEDS: DOCUSATE SODIUM 100 MG CAP PO SCH (08:47)
[2020-04-26] MEDS ORDERED: ENOXAPARIN INJ 40 MG/0.4 ML SYR SQ SCH (09:00)
[2020-04-26] MEDS ORDERED: MULTIVITAMIN TAB PO SCH (09:00)
[2020-04-26] MEDS ORDERED: ROSUVASTATIN CALCIUM 10 MG TAB PO SCH (09:00)
--- NOTE | 2020-04-26 12:01 | Communication Note ---
Date of Service: April 26, 2020 Received a [employer] message from nursing staff that patient was refusing Lovenox shots and stated she would not take them at home either if ordered. I spoke to Dr Wong. He said although he wanted her to receive the Lovenox, if she is refusing the medication, to switch her to Aspirin 81mg po bid. Orders placed to switch medicine.
[2020-04-26] MEDS ORDERED: ASPIRIN 81 MG ECTAB PO SCH (21:00)
--- NOTE | 2020-04-26 23:05 | Discharge Summary ---
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 Patient underwent previous revision right ANDRES, head and freya exchange on 10/04/19 secondary to eccentric wear of her polyethylene liner. The patient has failed outpatient conservative treatments to this point which included NSAIDs, bracing, PT and a home exercise/walking program. Due to patient's recurrent instability they are requesting to proceed with total hip replacement surgery. 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 The patient's symptoms have progressed to the point where it has been difficult to perform even normal activities of daily living. I indicated the patient for a revision right total hip arthroplasty, the risks, benefits and complications of the procedure include but not limited to infection, bleeding, damage to bone, nerves, vessels, surrounding soft tissue, may develop blood clots, loss of function, leg length discrepancy, dislocation, failure of the components, loosening of the components, the need for additional surgery and . The patient wished to proceed with surgery at this time and informed consent was obtained. Hospital Course: On 04/25/20 the patient was taken to the operating room, adequate anesthesia administered and underwent a revision right total hip arthroplasty. The patient tolerated the procedure well and was taken to the PACU in stable condition. Post-operatively the patient was started on a DVT ppx medication and given appropriate IV antibiotics. Consults were placed to physical therapy, occupational therapy and case management. On POD#1, the patient did well overnight and their pain was well controlled. Labs were drawn and the Hgb was 10.6. The patient progressed well with PT. Dressings were changed at this time and the incision was clean, dry and intact. The patients hospital stay was relatively uneventful and they were deemed stable by the orthopedic team and consultants to be discharged home with HH on 04/26/20. Discharge Instructions: Upon discharge the patient may weight bear as tolerates through their operative extremity. They were instructed to keep the incision clean and dry at all times. The patient may shower but should not submerge the incision, avoid bathing, pools and hot tubes. The patient was given a script for pain medication and should take as instructed. The patient was given a script for DVT ppx 325mg ASA BID and should take as directed. The patient was instructed to not drive or travel for long distances until cleared to do so. If the patient develops any symptoms of fevers, chills, nausea, vomiting, increased redness, swelling, pain or drainage from the surgical site, they should notify the office and/or proceed to the nearest emergency room. The patient should follow up in 10-14 days after surgery for their routine post-operative follow-up appointment and should call the office to confirm the date and time. s/p Revision right ANDRES, acetabulum POD#1 -ancef x 24 -DVT ppx: SCDs, TEDs, Lovenox daily -WBAT RLE -PT/OT -Dressing change -PO XR demonstrates well aligned well fixed prothesis without fracture/dislocation -am labs - hgb 10.6 -DC planning - home with Total Time Total Time Spent Total Time Spent (In Minutes): 45 Discharge Plan Discharge Items Patient Disposition: Home - Home Health Services Reason For Visit: Unilateral Primary Osteoarthritis, Right Hip Discharge Diagnosis: Revision right total hip replacement -Failed right total hip, recurrent instability Condition on Discharge: Good Activity: Per Instructions section Lifting: Wait until after follow-up appointment Bathing: Keep incision dry Bathing Comment: No bathing, pools or hot tubs. Sexual Activity: Wait until after follow-up appointment Exercise/Sports: Wait until after follow-up appointment Driving/Machine Use: No driving Weightbearing: Full weightbearing Non-emergency contact: Primary Care Provider and Surgeon Call non-emergency contact if: you have any medication questions, your symptoms worsen, your pain is not controlled, your pain is worsening, your pain is unusual for you, your pain is concerning for you, you have a fever, your temperature is above 101, your wound has increased redness, your wound has increased drainage and your wound pain has increased Follow-up/Referrals: Zuleyma Kern PA-C [Primary Care Provider] - Diet: Regular Addtl Attending Provider Instructions: ACTIVITY RECOMMENDATIONS: SELF CARE INSTRUCTIONS AFTER TOTAL HIP REPLACEMENT Until the incision and soft tissues around your hip have healed, there is a possibility that the hip prosthesis could dislocate. A. Observe the following precautions to prevent dislocation: 1. Don't bend your hip greater than 90 degrees. 2. Avoid crossing your legs or ankles while standing or lying. 3. Sit with your feet placed 6 inches apart. 4. When sitting, keep your knees below your hips. Sit on a firm surface, avoid deep, soft chairs and couches. Use an elevated toilet seat in the bathroom. 5. Don't bend over at the waist. Use a long handled shoehorn and a sock aid to help you put on your shoes and socks. A director of physical security can help you picker / packer objects that are too high or too low to reach. 6. Keep car riding to a minimum for at least one month after surgery. B. Your balance may be shaky for a while. Use crutches or a walker until directed by your doctor. C. Use hand rails when walking on stairs. D. Wear low heeled shoes with non-slip soles. E. Be sure that your floors are free of things that could trip you - throw rugs, electrical cords, small objects. Avoid wet and waxed floors, especially with crutches and canes. F. Try to walk several times a day with rest periods between. G. Continue with all the exercises taught to you in the hospital. Again, make walking a part of your daily routine. SPECIAL CARE INSTRUCTIONS: VERY IMPORTANT TO READ AND REVIEW A. You may still be at risk for phlebitis and blood clots. 1. Wear surgical stockings (LUCI hose) for 2 weeks after surgery to improve circulation and reduce swelling. 2. Take Aspirin 81mg twice (AM/PM) daily for 4 weeks or as directed by your doctor. This is your blood thinner. 3. High risk patients may be prescribed a stronger blood thinner if necessary. 4. If you are on Coumadin normally, your family doctor/supply teacher should monitor your blood work. Expect a phone call the day of or the day after bloodwork is drawn to adjust your dosage. B. You must take antibiotics before having dental work, bladder, bowel and other surgery. Your doctor will provide you with a permanent card to carry de scribing precautions. C. Call [facility] if you have a fever, redness or swelling around the incision, cloudy drainage from incision, or sudden increase in pain in your hip, not relieved by your regular pain medication. D. Please call the office at if you have any concerns or que stions about your operation or recovery. * YOU MAY SHOWER, NO TUB BATHS UNTIL CLEARED BY YOUR DOCTOR. * WEAR LUCI HOSE 20 HOURS PER DAY FOR 2 WEEKS. * YOU SHOULD USE A WALKER OR CRUTCHES FOR 2-4 WEEKS. THIS WILL HELP PREVENT STRAIN ON YOUR HIP MUSCLE AND ALLOW IT TO HEAL PROPERLY. YOU MAY WEAN TO A CANE TOLERATED. * MOST PATIENTS WILL HAVE HOME NURSING FOR THERAPY. IF YOU DECIDE TO DO OUTPATIENT PHYSICAL THERAPY, PLEASE SCHEDULE THIS 3 TIMES PER WEEK. * Silverlon- This is a large adhesive bandage that contains silver ions. This helps your incision heal by fighting off bacteria and protecting it from the outside environment. You are permitted to shower with this dressing. This will remain on your incision for 7 days and then should be removed. Some visible blood or drainage through the dressing window is normal. If there is significant drainage or leaking noted before the 7 days notify your doctor's office immediately. Once removed, keep incision clean and dry. If there is any drainage or redness noted, please call your surgeon. . FOLLOW UP VISIT: If appointment is not already scheduled: Please call [facility] to make a follow-up appointment for 2 weeks after your surgery at . Pending Studies at Discharge: No Stand-Alone Forms: [employer], Opioid Pain Management, Smoking Cessation Medications and DC Order Prescriptions: New acetaminophen 500 mg Tablet 1,000 mg PO Q8 PRN (Reason: pain) Qty: 90 RF: 0 oxycodone 5 mg Tablet 5 mg PO Q6H MDD 4 PRN (Reason: pain) Qty: 30 RF: 0 sennosides [Senokot] 8.6 mg Tablet 17.2 mg PO HS PRN (Reason: constipation) Qty: 28 RF: 0 aspirin 81 mg Tablet,Delayed Release (Dr/Ec) 81 mg PO BID 30 Days Qty: 60 RF: 0 Continued montelukast 10 mg Tablet 10 mg PO DAILY PRN (Reason: allergies) RF: 0 rosuvastatin [Crestor] 10 mg Tablet 10 mg PO QAM RF: 0 multivitamin Tablet 1 tab PO QAM RF: 0 Calcium 600 + D(3) 600 mg calcium- 200 unit Capsule 1 tab PO QAM RF: 0 docusate sodium [Stool Softener] 100 mg Capsule 100 mg PO QAM RF: 0 cholecalciferol (vitamin D3) [Vitamin D3] 400 unit Tablet 400 unit PO QAM RF: 0 biotin 5,000 mcg Tablet,Disintegrating 10,000 mcg PO QAM RF: 0 Discharge Orders: Discharge Order (Routine); Ordered 04/26/20 Ordered By: Ramy Fuentes/Other Patient Handouts: DVT Post Op Prevention Admission Data Admit Date/Time: 04/25/20 14:34 Attending Provider: Derrek Wong Admit Provider: Derrek Wong Primary Care Provider: Zuleyma Kern Other Providers: [facility],Home Health Other Interventions: Discharge Summary Assessment (RN) Last Done: 04/26/20 15:10 DC Date/Time DO NOT enter until pt leaves facility: 04/26/20 15:46
== END 2020-04-26 15:46 | disposition home health service (06) | DRG 468 ==
LOC: ASU 09:20 → 3E 14:34